=== PATIENT | male | born 1960 | race Caucasian/White ===

== ENCOUNTER → 2020-03-09 13:26 | Outpatient (REF) | payer BC, SELFPAY ==
--- NOTE | 2020-03-09 14:00 | CA_ITS ---
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 The visually estimated ejection fraction is between 55-60%. - The left atrium is moderately dilated. - No obvious valvular pathology seen on this study. Findings Left Ventricle Normal left ventricular cavity size. There is normal left ventricular wall thickness. The left ventricular systolic function is normal. The visually estimated ejection fraction is between 55-60%. There is no evidence of regional wall motion abnormalities. Diastolic function is indeterminate on the basis of available data. Right Ventricle Normal right ventricular cavity size and systolic function. Atria The left atrium is moderately dilated. The right atrium is normal in size. Aortic Valve There is a normal trileaflet aortic valve. There is no aortic valve stenosis. There is no aortic valve regurgitation. Mitral Valve The mitral valve appears normal. There is trace mitral valve regurgitation. There is no mitral valve stenosis. Pulmonic Valve The pulmonic valve was not well visualized. Tricuspid Valve Normal tricuspid valve structure. There is trace tricuspid valve regurgitation. The pulmonary artery systolic pressure is normal. Great Vessels The aortic annulus, sinuses of valsalva, and asc aorta are normal in size. Venous The inferior vena cava is normal in size and collapses greater than 50% with inspiration. Pericardium/Pleural There is no evidence of pericardial effusion. Prior Study Comparison No significant change compared to prior study dated: 02/06/2019. Recommendations, Care & Conclusions No obvious valvular pathology seen on this study. Measurements 2D Linear Measurements RVIDd: 2.85 RVIDd Index: 1.35 IVSd: 1.08 0.6-0.9/0.6-1.0 cm LVIDd: 5.07 3.9-5.3/4.2-5.9 cm LVIDd Index: 2.40 2.4-3.2/2.2-3.1 cm/m2 LVIDs: 3.68 2.0-3.6 cm LVPWd: 1.02 0.7-1.1 cm Ao Root: 3.10 2.1-3.5 cm LA Diam: 5.40 2.7-3.8/3.0-4.0 cm LAIDs Index: 2.56 1.5-2.3 cm/m2 LV Mass: 247.81 67-162/88-224 g LV Mass Index: 117.45 43-95/49-115 g/m2 LVOT Diam: 2.20 3.0+(-)1.3 cm 2D Systolic Function EF 4C: 56.30 >55% EF 2C: 70.30 >55% EF BiP: 64.10 >55% Aortic Valve AoV Pk Da: 1.13 AoV Mn Da: 0.81 AoV VTI: 0.21 AoV Pk Grad: 5.00 Aov Mn Grad: 3.00 ALEXIS Cont.VTI: 3.18 LVOT LVOT Pk Da: 0.94 LVOT Mn Da: 0.66 LVOT VTI: 0.18 LVOT Pk Grad: 4.00 LVOT Mn Grad: 2.00 LVOT Diam: 2.20 LVOT Area: 3.80 Tricuspid Valve TR Pk Da: 1.87 TR Pk Grad: 14.00 RA Press: 8.00 RVSP: 22.00 Great Vessels Aorta Ao Root-2D: 3.10 2.0-3.7 cm Ao Asc: 3.10 2.1-3.4 cm Ao Arch: 2.90 Updated in Other Vendor System with Status of Final Louie Reynoso MD electronically signed on 03/10/2020 9:11:29 AM with status of Final
== END ==
LOC: HO.CARD 13:26
PROVIDERS: PCP Internal Medicine; Visit Provider Internal Medicine Cardiovascular Disease
DX: I48.20 Chronic atrial fibrillation, unspecified (principal); I42.9 Cardiomyopathy, unspecified; I10 Essential (primary) hypertension
CPT/HCPCS: 93306

== ENCOUNTER 2020-07-21 12:48 | Outpatient (REF) | payer BC, SELFPAY ==
[2020-07-21 14:49] LABS: Hematocrit 43.3 % (42-52); Hemoglobin 14.1 g/dl (14.0-18.0); Mean Corpuscular HGB Conc 32.6 g/dl (31.0-36.0); Mean Corpuscular Hemoglobin 30.7 pg (27.0-33.0); Mean Corpuscular Volume 94.1 fL (80-98); Mean Platelet Volume 11.4 fL (9.4-12.4); Platelet Count 175 X10*3/uL (160-400); Red Cell Distribution Width 12.4 % (11.0-16.0); White Blood Count 7.1 X10*3/uL (4.8-10.8)
[2020-07-21 15:19] LABS: Digoxin 0.6 ng/mL (0.8-2.0)
[2020-07-21 15:22] LABS: Anion Gap 11 (12-20); Blood Urea Nitrogen 13 mg/dL (9-16); Calcium 8.9 mg/dL (8.4-10.2); Carbon Dioxide 29 mmol/L (22-29); Chloride 106 mmol/L (96-108); Estimated Glomerular Filt Rate > 60; Glucose Random 79 mg/dL (60-115); Potassium 4.4 mmol/L (3.3-5.1); Sodium 142 mmol/L (135-145)
== END 2020-07-21 12:49 | disposition home or self-care (01) ==
LOC: HO.HMGCLDS 12:48
PROVIDERS: PCP Internal Medicine; Visit Provider Internal Medicine Cardiovascular Disease
DX: I48.20 Chronic atrial fibrillation, unspecified (principal); I42.9 Cardiomyopathy, unspecified
CPT/HCPCS: 36415; 80048; 80162; 85027

== ENCOUNTER 2021-01-26 13:06 | Outpatient (REF) | payer BC, SELFPAY ==
[2021-01-26 15:01] LABS: Hematocrit 42.6 % (42-52); Hemoglobin 13.9 g/dl (14.0-18.0); Mean Corpuscular HGB Conc 32.6 g/dl (31.0-36.0); Mean Corpuscular Hemoglobin 30.5 pg (27.0-33.0); Mean Corpuscular Volume 93.4 fL (80-98); Mean Platelet Volume 10.9 fL (9.4-12.4); Platelet Count 181 X10*3/uL (160-400); Red Blood Count 4.56 X10*6/uL (4.60-5.80); Red Cell Distribution Width 12.4 % (11.0-16.0); White Blood Count 8.2 X10*3/uL (4.8-10.8)
[2021-01-26 15:30] LABS: Anion Gap 10 (12-20); Blood Urea Nitrogen 11 mg/dL (9-16); Carbon Dioxide 27 mmol/L (22-29); Chloride 107 mmol/L (96-108); Estimated Glomerular Filt Rate > 60; Glucose Random 75 mg/dL (60-115); Potassium 4.1 mmol/L (3.3-5.1); Sodium 140 mmol/L (135-145)
[2021-01-26 15:54] LABS: Digoxin 0.8 ng/mL (0.8-2.0)
== END 2021-01-26 13:07 | disposition home or self-care (01) ==
LOC: HO.LAB 13:06
PROVIDERS: PCP Internal Medicine; Referring Provider Internal Medicine; Visit Provider Internal Medicine Cardiovascular Disease
DX: I48.20 Chronic atrial fibrillation, unspecified (principal); I10 Essential (primary) hypertension; Z86.79 Personal history of other diseases of the circulatory system
CPT/HCPCS: 36415; 80048; 80162; 85027; 93005

== ENCOUNTER → 2021-07-13 13:36 | Outpatient (REF) | payer BC, SELFPAY ==
--- NOTE | 2021-07-13 13:40 | CA_ITS ---
Transthoracic Echocardiogram Patient (Last, First, Middle): Damion Carlton P Gender: Male Date of : 1960 Age: 60 Procedure Date: 07/13/2021 Procedure Type: Transthoracic Echocardiogram Location: OP Height: 180.34 cm Weight: 95.26 kg BSA: 2.15 m2 Heart Rate: bpm BP: 120 / 70 mmHg Chief Operator: TORRES Referring MD: Austin Conti MD Barista: Austin Conti MD Symptoms: Z86.79 - Personal history of other diseases of the circul... Study Quality: Fair ECG Rhythm: Atrial Fibrillation Conclusions: - 1. Normal LV systolic function with normal filling pressures 2. Moderately dilated left atrium 3. Normal cardiac valvular Dopplers 4. No pericardial effusion Findings Left Ventricle Normal left ventricular size, thickness, and systolic function. The visually estimated ejection fraction is between 60-65%. Normal left ventricular filling pressures. E/E prime ratio is <8, consistent with normal filling pressures. Right Ventricle Normal right ventricular cavity size and systolic function. Atria The left atrium is moderately dilated. There is lipomatous hypertrophy of the interatrial septum. There is no evidence of interatrial shunt. The right atrium is likely dilated. Aortic Valve Normal aortic valve structure and function. There is no aortic valve stenosis. There is no aortic valve regurgitation. Mitral Valve There is mild posterior mitral leaflet thickening. There is trace mitral valve regurgitation. There is no mitral valve stenosis. Pulmonic Valve The pulmonic valve was not well visualized. Tricuspid Valve Likely normal tricuspid valve structure and function. There is trace tricuspid valve regurgitation. Tricuspid regurgitation envelope is inadequate for calculation of right ventricular systolic pressure. Great Vessels All visible segments of the aorta are normal in size. The pulmonary artery was not well visualized. Venous The inferior vena cava is normal in size and collapses greater than 50% with inspiration. Pericardium/Pleural There is no evidence of pericardial effusion. Prior Study Comparison No significant change compared to prior study dated: 03/09/2020. Measurements 2D Linear Measurements IVSd: 1.12 0.6-0.9/0.6-1.0 cm LVIDd: 5.17 3.9-5.3/4.2-5.9 cm LVIDd Index: 2.40 2.4-3.2/2.2-3.1 cm/m2 LVIDs: 3.37 2.0-3.6 cm LVPWd: 1.02 0.7-1.1 cm LA Diam: 4.90 2.7-3.8/3.0-4.0 cm LAIDs Index: 2.28 1.5-2.3 cm/m2 LV Mass: 262.53 67-162/88-224 g LV Mass Index: 122.11 43-95/49-115 g/m2 LVOT Diam: 2.10 3.0+(-)1.3 cm 2D Systolic Function EF 4C: 69.50 >55% EF 2C: 60.40 >55% EF BiP: 66.10 >55% M-Mode Systolic Function FS: 2.14 27-47/25-43% Mitral Valve MV Pk E: 0.81 MV Decel Time: 151.00 E'Lateral: 13.50 E'Medial: 11.70 E/E' Med: 6.90 E/E' Lat: 6.00 PHT: 44.00 MVA PHT: 5.00 Decel [place]: 5.61 Aortic Valve AoV Pk Da: 1.18 AoV Pk Grad: 6.00 LVOT LVOT Pk Da: 0.90 LVOT Mn Da: 0.60 LVOT VTI: 0.17 LVOT Pk Grad: 3.00 LVOT Mn Grad: 2.00 LVOT Diam: 2.10 LVOT Area: 3.46 Diastolic Function MV Pk E: 0.81 E'Medial: 11.70 E/E' Med: 6.90 E' Laterial: 13.50 E/E' Lat: 6.00 Tricuspid Valve RA Press: 3.00 Great Vessels Aorta Sinus of Valsalva: 3.06 2.0-3.5 cm Ao Asc: 3.10 2.1-3.4 cm Updated in Other Vendor System with Status of Final Austin Conti MD electronically signed on 07/13/2021 8:47:45 PM with status of Final
== END ==
LOC: HO.CARD 13:36
PROVIDERS: PCP Internal Medicine; Visit Provider Internal Medicine Cardiovascular Disease
DX: Z86.79 Personal history of other diseases of the circulatory system (principal)
CPT/HCPCS: 93306

== ENCOUNTER 2021-07-20 13:00 | Outpatient (REF) | payer BC, SELFPAY ==
[2021-07-20 14:14] LABS: Hematocrit 46.1 % (42.0-52.0); Hemoglobin 14.8 g/dl (14.0-18.0); Mean Corpuscular HGB Conc 32.1 g/dl (31.0-36.0); Mean Corpuscular Hemoglobin 30.4 pg (27.0-33.0); Mean Corpuscular Volume 94.7 fL (80.0-98.0); Mean Platelet Volume 10.8 fL (9.4-12.4); Platelet Count 198 X10*3/uL (160-400); Red Blood Count 4.87 X10*6/uL (4.60-5.80); Red Cell Distribution Width 12.3 % (11.0-16.0); White Blood Count 8.4 X10*3/uL (4.8-10.8)
[2021-07-20 14:47] LABS: Anion Gap 12 (12-20); Blood Urea Nitrogen 11 mg/dL (9-16); Calcium 9.6 mg/dL (8.4-10.2); Carbon Dioxide 30 mmol/L (22-29); Chloride 103 mmol/L (96-108); Estimated Glomerular Filt Rate > 60; Glucose Random 89 mg/dL (60-115); Potassium 4.9 mmol/L (3.3-5.1); Sodium 140 mmol/L (135-145)
[2021-07-20 15:10] LABS: Digoxin 0.8 ng/mL (0.8-2.0)
== END 2021-07-20 13:01 | disposition home or self-care (01) ==
LOC: HO.LAB 13:00
PROVIDERS: PCP Internal Medicine; Referring Provider Internal Medicine; Visit Provider Internal Medicine Cardiovascular Disease
DX: I48.20 Chronic atrial fibrillation, unspecified (principal); Z79.899 Other long term (current) drug therapy; Z86.79 Personal history of other diseases of the circulatory system
CPT/HCPCS: 36415; 80048; 80162; 85027; 93005

== ENCOUNTER 2021-09-21 14:06 | Outpatient (REF) | payer BC, SELFPAY ==
[2021-09-21 17:25] LABS: Alanine Aminotransferase 22 U/L (0-40); Albumin Level 4.1 g/dL (3.5-5.0); Alkaline Phosphatase 68 U/L (39-117); Anion Gap 10 (12-20); Aspartate Amino Transferase 19 U/L (5-37); Bilirubin Total 1.9 mg/dL (0.0-1.0); Blood Urea Nitrogen 14 mg/dL (9-16); Calcium 9.3 mg/dL (8.4-10.2); Carbon Dioxide 28 mmol/L (22-29); Chloride 105 mmol/L (96-108); Cholesterol 155 mg/dL; Estimated Glomerular Filt Rate > 60; Glucose Fasting 84 mg/dL (60-99); HDL Cholesterol 34 mg/dL; LDL Cholesterol Calculated 99 mg/dl; Potassium 4.4 mmol/L (3.3-5.1); Sodium 139 mmol/L (135-145); Triglycerides 112 mg/dL
[2021-09-21 17:46] LABS: Prostate Specific Antigen Scr 0.32 ng/mL (<0.05-4.0)
== END 2021-09-21 14:07 | disposition home or self-care (01) ==
LOC: HO.HMGCLDS 14:06
PROVIDERS: Visit Provider Internal Medicine
DX: Z00.00 Encounter for general adult medical examination without abnormal findings (principal); Z12.5 Encounter for screening for malignant neoplasm of prostate; I10 Essential (primary) hypertension; Z86.79 Personal history of other diseases of the circulatory system
CPT/HCPCS: 36415; 80053; 80061; 84153

== ENCOUNTER → 2022-01-25 12:04 | Outpatient (BNVA) | payer BC, SELFPAY | PROVIDERS: PCP Internal Medicine; Referring Provider Internal Medicine; Visit Provider Internal Medicine Cardiovascular Disease | DX: Z01.810 Encounter for preprocedural cardiovascular examination (principal); I48.20 Chronic atrial fibrillation, unspecified; Z86.79 Personal history of other diseases of the circulatory system | CPT/HCPCS: 93005 ==

== ENCOUNTER 2022-01-25 12:59 | Outpatient (REF) | payer BC, SELFPAY ==
[2022-01-25 14:15] LABS: Digoxin 0.7 ng/mL (0.8-2.0)
== END 2022-01-25 13:00 | disposition home or self-care (01) ==
LOC: HO.LAB 12:59
PROVIDERS: PCP Internal Medicine; Visit Provider Internal Medicine Cardiovascular Disease
DX: I48.20 Chronic atrial fibrillation, unspecified (principal)
CPT/HCPCS: 36415; 80162

== ENCOUNTER 2022-02-18 07:16 | Day surgery (SDC) | payer BC, SELFPAY ==
[2022-02-15 10:32] VITALS: BMI 30.4
--- NOTE | 2022-02-17 10:58 | P.CONAN_ITS ---
Documented by User: Margarette Saleh NP 02/17/22 11:00 HPI - Anesthesia Eval Consult details Narrative: 61yo M for Colonoscopy cardiac optimized eliquis for afib PMFSH Active Problems Active Problems: All Active Problems (Updated 09/21/21 @ 14:04 by Lakshmi Kohler MD) Annual physical exam (Acute) History of nephrolithiasis (Acute) Hx of colonoscopy (Acute) History of cardiomyopathy (Acute) HTN (hypertension) (Acute) Chronic atrial fibrillation (Acute) Past Medical History Medical History Annual physical exam Chronic atrial fibrillation History of cardiomyopathy History of nephrolithiasis HTN (hypertension) Surgical History Surgical History Hx of colonoscopy Social History Social History 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:: , 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[employer] Housing: House Patient Tobacco Use Status: Never used Tobacco e-Cigarette/Vaping Use: Never Used Are you DNR?: No Advance Directives: No Advance Directives Information Provided: Yes Nutrition Risks: No Nutritional Risk Current occupational status: employed Cognitive needs: No Hearing needs: No Vision needs: No Meds Allergies Allergy/AdvReac Type Severity Reaction Status Date / Time No Known Allergies Allergy Mild NONE Verified 02/18/22 08:12 Exam Exam Date and Time: February 17, 2022 1058 Height,Weight and Vital Signs: Height 5 ft 11 in Weight 99 kg Pertinent Lab Results Pertinent Lab Results: Laboratory Tests 07/20/21 09/21/21 13:43 14:15 WBC 8.4 Hgb 14.8 Hct 46.1 Plt Count 198 Sodium 139 Potassium 4.4 Chloride 105 Carbon Dioxide 28 BUN 14 Creatinine 1.03 Narrative Narrative: EKG 01/2022 atrial fibrillation with nonspecific T-wave changes Assessment and Plan Assessment Anesthesia Assessment: Chart Reviewed Documented by User: Kyle Vincent MD 02/18/22 15:52 [facility] Past Medical History Medical History Annual physical exam Chronic atrial fibrillation History of cardiomyopathy History of nephrolithiasis HTN (hypertension) Functional capacity: independent ambulation Family History Family history of problems with anesthesia: No Surgical History Surgical History Hx of colonoscopy History of Problems with Anesthesia: No Social History Social History 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:: , 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[employer] Housing: House Patient Tobacco Use Status: Never used Tobacco e-Cigarette/Vaping Use: Never Used Are you DNR?: No Advance Directives: No Advance Directives Information Provided: Yes Nutrition Risks: No Nutritional Risk Current occupational status: employed Cognitive needs: No Hearing needs: No Vision needs: No Meds Allergies Allergy/AdvReac Type Severity Reaction Status Date / Time No Known Allergies Allergy Mild NONE Verified 02/18/22 08:12 Exam Airway Mallampati Class: III TM Dist: >3cm Neck ROM: Full Loose/Missing/Broken Teeth: Yes (Fillings , poor dentition ) Heart: Irregular Lungs: b/l breath sounds Assessment and Plan Assessment Anesthesia Assessment: Anesthesia Plan Discussed Final Anesthetic Review Family History of Problems with Anesthesia: No History of Problems with Anesthesia: No NPO: Yes ASA Class: III Final Preanesthetic Review: Meds/Allgs Chart Reviewed, Consent Obtained/Reviewed and Anes Risks/Benef Reviewed Patient Risk: Intermediate Procedure Risk: Intermediate Anesthetic Plan Anesthetic Plan: MAC: Disposition: Standard PACU
[2022-02-18] MEDS: Lactated Ringers 1,000 ML 100 ML IVCONT (08:01)
[2022-02-18 08:13] VITALS: BP 118/89; PULSE 87; RESP 18; TEMP 36.6; O2SAT 99
--- NOTE | 2022-02-18 08:41 | MHC.SHP ---
Pre-Procedural Eval Section A Date of Service: 02/18/22 The patient is an INPATIENT: No Changes since office visit: No Cold of Flu in the past 2 weeks, No New Medical Problems, No Changes in Medication and No Patient answered all questions The History & Physical has been completed within 30 days and I have reviewed it.: Yes Section B Chief Complaint: Encounter for screening for malignant neoplasm of Allergies: Allergies Allergy/AdvReac Type Severity Reaction Status Date / Time No Known Allergies Allergy Mild NONE Verified 02/18/22 08:12 Plan I have reviewed the history and physical and performed a pertinent physical examination on my patient. No changes have occurred unless specified.
--- NOTE | 2022-02-18 09:50 | PM.OP ---
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
[2022-02-18 09:57] VITALS: BP 91/50; PULSE 77; RESP 15; TEMP 36.2; O2SAT 97
[2022-02-18 10:12] VITALS: BP 95/55; PULSE 78; RESP 18; TEMP 36.2; O2SAT 97
--- NOTE | 2022-02-19 00:40 | OP_ITS ---
SURGEON: Jose Antonio Cortes MD INDICATIONS: Colon cancer screening and prior history of adenomatous colon polyps. PREOPERATIVE DIAGNOSIS: POSTOPERATIVE DIAGNOSIS: PROCEDURE PERFORMED: Colonoscopy to the terminal ileum on 02/18/22. ESTIMATED BLOOD LOSS: COMPLICATIONS: ANESTHESIA: ASSISTANTS: SPECIMENS: MEDICATIONS: Monitored anesthesia care. DESCRIPTION OF PROCEDURE: History and physical performed. The risks and benefits of the procedure were explained to the patient. Informed consent was obtained. The patient was placed in the left lateral decubitus position. A digital rectal exam was performed and was found to be normal. The Olympus pediatric video colonoscope was introduced into the rectum and advanced to the cecum without difficulty. The cecum was identified by transillumination, palpation, and identification of the ileocecal valve. Examination was performed. The scope was removed. He tolerated the procedure well and was transferred to the recovery area in stable condition. FINDINGS: The terminal ileum was examined. There was a small focal area of nonspecific ileitis, but it was otherwise normal. The visualized colonic mucosa was within normal limits without evidence of masses or ulcers. The quality of the prep was excellent. No polyps were identified. There was mild sigmoid diverticulosis and retroflexed examination showed small internal hemorrhoids. IMPRESSION: Normal colonoscopy. RECOMMENDATION: 1. Follow up as needed. 2. Repeat colonoscopy is recommended in 10 years. MD JESSIE Boyd/BRANDI / [id number] MTDD
== END 2022-02-18 11:45 | disposition home or self-care (01) ==
PROVIDERS: PCP Internal Medicine; Visit Provider Internal Medicine Gastroenterology
PROC: 0DJD8ZZ Inspection of Lower Intestinal Tract, Via Natural or Artificial Opening Endoscopic (ICD-10-PCS; CPT 45378; principal; 2022-02-18 08:30)
DX: Z12.11 Encounter for screening for malignant neoplasm of colon (principal); Z86.010 Personal history of colon polyps; K52.9 Noninfective gastroenteritis and colitis, unspecified; K57.30 Diverticulosis of large intestine without perforation or abscess without bleeding; K64.8 Other hemorrhoids; I48.20 Chronic atrial fibrillation, unspecified; E78.00 Pure hypercholesterolemia, unspecified; I10 Essential (primary) hypertension; Z79.899 Other long term (current) drug therapy; Z79.01 Long term (current) use of anticoagulants; Z86.79 Personal history of other diseases of the circulatory system; Z87.442 Personal history of urinary calculi
CPT/HCPCS: 45378; J2250; J2370

== ENCOUNTER 2022-07-26 13:10 | Outpatient (REF) | payer BC, SELFPAY ==
[2022-07-26 14:33] LABS: Hematocrit 45.3 % (42.0-52.0); Hemoglobin 14.9 g/dl (14.0-18.0); Mean Corpuscular HGB Conc 32.9 g/dl (31.0-36.0); Mean Corpuscular Volume 94.2 fL (80.0-98.0); Mean Platelet Volume 10.6 fL (9.4-12.4); Platelet Count 213 X10*3/uL (160-400); Red Blood Count 4.81 X10*6/uL (4.60-5.80); Red Cell Distribution Width 12.4 % (11.0-16.0); White Blood Count 8.8 X10*3/uL (4.8-10.8)
[2022-07-26 14:57] LABS: Digoxin 0.9 ng/mL (0.8-2.0)
[2022-07-26 15:04] LABS: Alanine Aminotransferase 19 U/L (0-40); Alkaline Phosphatase 71 U/L (39-117); Anion Gap 13 (12-20); Aspartate Amino Transferase 17 U/L (5-37); Bilirubin Direct 0.5 mg/dL (0.0-0.5); Bilirubin Total 1.6 mg/dL (0.0-1.0); Blood Urea Nitrogen 10 mg/dL (9-16); Carbon Dioxide 27 mmol/L (22-29); Chloride 106 mmol/L (96-108); Estimated Glomerular Filt Rate > 60; Glucose Random 89 mg/dL (60-115); Potassium 4.6 mmol/L (3.3-5.1); Sodium 141 mmol/L (135-145); Total Protein 6.5 g/dL (6.5-8.0)
[2022-07-26 15:18] LABS: Ferritin 511 ng/mL (20-250)
== END 2022-07-26 13:11 | disposition home or self-care (01) ==
LOC: HO.LAB 13:10
PROVIDERS: PCP Internal Medicine; Referring Provider Internal Medicine; Visit Provider Internal Medicine Cardiovascular Disease
DX: I48.20 Chronic atrial fibrillation, unspecified (principal); R42 Dizziness and giddiness; Z86.79 Personal history of other diseases of the circulatory system; Z79.899 Other long term (current) drug therapy
CPT/HCPCS: 36415; 80048; 80076; 80162; 82728; 85027

== ENCOUNTER → 2022-07-29 10:38 | Outpatient (REF) | payer BC, SELFPAY ==
--- NOTE | 2022-07-29 10:42 | CA_ITS ---
Transthoracic Echocardiogram Patient (Last, First, Middle): Damion Carlton P Gender: Male Date of : 1960 Age: 61 Procedure Date: 07/29/2022 Procedure Type: Transthoracic Echocardiogram Location: OP Height: 180.34 cm Weight: 94.35 kg BSA: 2.14 m2 Heart Rate: 68 bpm BP: 100 / 60 mmHg Quality Control Coordinator: LILIANE Referring MD: Austin Conti MD Community Representative: Austin Conti MD Symptoms: I48.20 - Chronic atrial fibrillation, unspecified Study Quality: Adequate ECG Rhythm: Atrial Fibrillation Conclusions: - 1. Normal LV systolic function and normal filling pressures 2. At least mildly dilated left atrium 3. No gross pericardial effusion Findings Left Ventricle Normal left ventricular size, thickness, and systolic function. The visually estimated ejection fraction is between 55-60%. Normal left ventricular filling pressures. E/E prime ratio is <8, consistent with normal filling pressures. Right Ventricle Mildly increased right ventricular cavity size. There is normal right ventricular systolic function. Atria The left atrium is mildly dilated. There is no evidence of interatrial shunt. The right atrium is normal in size. Aortic Valve Normal aortic valve structure and function. There is no aortic valve stenosis. There is no aortic valve regurgitation. Mitral Valve Normal mitral valve structure and function. There is trace mitral valve regurgitation. There is no mitral valve stenosis. Pulmonic Valve The pulmonic valve was not well visualized. Tricuspid Valve Likely normal tricuspid valve structure and function. Tricuspid regurgitation envelope is inadequate for calculation of right ventricular systolic pressure. Normal right atrial pressure. Great Vessels All visible segments of the aorta are normal in size. The pulmonary artery was not well visualized. Venous The inferior vena cava is normal in size and collapses greater than 50% with inspiration. Pericardium/Pleural There is no evidence of pericardial effusion. Prior Study Comparison No significant change compared to prior study dated: 07/13/2021. Measurements 2D Linear Measurements IVSd: 1.04 0.6-0.9/0.6-1.0 cm LVIDd: 5.11 3.9-5.3/4.2-5.9 cm LVIDd Index: 2.39 2.4-3.2/2.2-3.1 cm/m2 LVIDs: 3.45 2.0-3.6 cm LVPWd: 1.00 0.7-1.1 cm LA Diam: 4.50 2.7-3.8/3.0-4.0 cm LAIDs Index: 2.10 1.5-2.3 cm/m2 LV Mass: 241.38 67-162/88-224 g LV Mass Index: 112.79 43-95/49-115 g/m2 LVOT Diam: 2.30 3.0+(-)1.3 cm 2D Systolic Function EF 4C: 58.30 >55% EF 2C: 54.10 >55% EF BiP: 56.80 >55% Mitral Valve MV Pk E: 0.70 MV Decel Time: 221.00 E'Lateral: 9.14 E'Medial: 7.94 E/E' Med: 8.80 E/E' Lat: 7.60 PHT: 65.00 MVA PHT: 3.38 Decel [place]: 3.16 Aortic Valve AoV Pk Da: 1.00 AoV Mn Da: 0.70 AoV VTI: 0.18 AoV Pk Grad: 4.00 Aov Mn Grad: 2.00 ALEXIS Cont.VTI: 3.67 LVOT LVOT Pk Da: 0.80 LVOT Mn Da: 0.58 LVOT VTI: 0.16 LVOT Pk Grad: 3.00 LVOT Mn Grad: 2.00 LVOT Diam: 2.30 LVOT Area: 4.15 Diastolic Function MV Pk E: 0.70 E'Medial: 7.94 E/E' Med: 8.80 E' Laterial: 9.14 E/E' Lat: 7.60 Right Ventricle TAPSE (mm): 18.30 TVS' Da: 11.60 Tricuspid Valve RA Press: 3.00 Great Vessels Aorta Sinus of Valsalva: 3.50 2.0-3.5 cm Ao Asc: 3.10 2.1-3.4 cm Pulmonary Valve PV Pk Da: 1.06 Peak PV Grad: 4.00 Updated in Other Vendor System with Status of Final Austin Conti MD electronically signed on 07/30/2022 1:16:13 PM with status of Final
== END ==
LOC: HO.CARD 10:38
PROVIDERS: PCP Internal Medicine; Visit Provider Internal Medicine Cardiovascular Disease
DX: I48.20 Chronic atrial fibrillation, unspecified (principal)
CPT/HCPCS: 93306

== ENCOUNTER 2022-09-08 06:15 | Outpatient (REF) | payer BC, SELFPAY ==
[2022-09-08 11:37] LABS: Hematocrit 44.3 % (42.0-52.0); Hemoglobin 14.4 g/dl (14.0-18.0); Mean Corpuscular HGB Conc 32.5 g/dl (31.0-36.0); Mean Corpuscular Hemoglobin 30.4 pg (27.0-33.0); Mean Corpuscular Volume 93.5 fL (80.0-98.0); Mean Platelet Volume 10.7 fL (9.4-12.4); Platelet Count 205 X10*3/uL (160-400); Red Blood Count 4.74 X10*6/uL (4.60-5.80); Red Cell Distribution Width 12.4 % (11.0-16.0); White Blood Count 8.9 X10*3/uL (4.8-10.8)
[2022-09-08 12:15] LABS: Alanine Aminotransferase 12 U/L (0-40); Albumin Level 3.9 g/dL (3.5-5.0); Alkaline Phosphatase 70 U/L (39-117); Anion Gap 11 (12-20); Aspartate Amino Transferase 15 U/L (5-37); Bilirubin Total 2.4 mg/dL (0.0-1.0); Blood Urea Nitrogen 11 mg/dL (9-16); Calcium 8.7 mg/dL (8.4-10.2); Carbon Dioxide 29 mmol/L (22-29); Chloride 104 mmol/L (96-108); Cholesterol 137 mg/dL; Estimated Glomerular Filt Rate > 60; Glucose Fasting 80 mg/dL (60-99); HDL Cholesterol 30 mg/dL; LDL Cholesterol Calculated 86 mg/dl; Potassium 3.8 mmol/L (3.3-5.1); Sodium 140 mmol/L (135-145); Total Protein 6.3 g/dL (6.5-8.0); Triglycerides 107 mg/dL
[2022-09-08 12:36] LABS: Prostate Specific Antigen Scr 0.33 ng/mL (<0.05-4.0)
== END 2022-09-08 06:16 | disposition home or self-care (01) ==
LOC: HO.HMGCLDS 06:15
PROVIDERS: PCP Internal Medicine; Visit Provider Internal Medicine
DX: Z00.00 Encounter for general adult medical examination without abnormal findings (principal); Z12.5 Encounter for screening for malignant neoplasm of prostate; I10 Essential (primary) hypertension; Z86.79 Personal history of other diseases of the circulatory system
CPT/HCPCS: 36415; 80053; 80061; 84153; 85027

== ENCOUNTER 2023-02-02 15:05 | Outpatient (AMB) | payer BC, SELFPAY ==
[2023-02-02 15:21] VITALS: BP 116/70; PULSE 84; BMI 31.1
--- NOTE | 2023-02-02 15:21 | MHC.OFFVIS ---
Intake Vital Signs 02/02/23 15:21 Height 5 ft 11 in Weight 222 lb 10.67 oz BMI 31.1 BP 116/70 Blood Pressure Location Lt brachial Position Sitting Pulse 84 Intake Visit Reasons: 6 month after echo Intake Note: 6 month follow-up after echo with ekg feeling good Test Case Developer Required: No Allergies No Known Allergies Allergy (Mild, Verified 09/26/22 13:01) NONE Medication List - Last Reconciled 02/02/23 by Austin Conti MD apixaban (Eliquis) 5 mg PO BID carvedilol 37.5 mg (1.5 x 25 mg) PO BID 90 days digoxin (Digox) 250 mcg PO DAILY 90 days losartan 12.5 mg (1/2 x 25 mg) PO QPM simvastatin 20 mg PO BEDTIME HPI HPI Comments History of Present Illness Details Bill comes for follow-up. Denies any cardiac symptoms. Currently taking all his medications. Few weeks ago at very low blood pressure in the morning in the 80 systolic. Was lightheaded. However since then the blood pressures been generally well control. Gets exertional shortness of breath NYHA class 2 unchanged from before. Denies any orthopnea, PND, leg edema. Denies any palpitation irregular heartbeat. No bleeding issues or neurologic events. 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 Patient Tobacco Use Status: Never used Tobacco e-Cigarette/Vaping Use: Never Used service: No Current occupational status: employed Cognitive needs: No Hearing needs: No Vision needs: No Review of Systems Const Denies chills, Denies fatigue, Denies fever(s), Denies frequent falls, Denies weakness, Denies weight gain and Denies weight loss ENT Denies dizziness Card Denies chest pain, Denies leg edema, Denies lightheadedness, Denies palpitations, Denies dyspnea, Denies dyspnea on exertion, Denies orthopnea and Denies other (loss of consciousness) Resp Denies cough, Denies dyspnea and Denies dyspnea on exertion GI Denies hematochezia and Denies change in stool character Musc Denies abnormal gait, Denies muscle weakness, Denies numbness, Denies radiating pain into limb and Denies tingling Neuro Denies abnormal gait, Denies dizziness, Denies frequent falls, Denies numbness, Denies tingling and Denies weakness Endo Denies fatigue and Denies palpitations Physical Exam Vital Signs: Last Vital Signs Pulse 84 02/02/23 15:21 BP 116/70 02/02/23 15:21 BMI result Body Mass Index 31.1 Const General: cooperative, comfortable, no acute distress, alert, awake and well groomed Nutritional Appearance: overweight Orientation/consciousness: patient oriented x3 Limitations: no limitations Neck Neck: Yes trachea midline, Yes supple and Yes no JVD Resp Effort & Inspection: normal respiratory effort Auscultation: clear to auscultation bilaterally Cardio Jugular venous distension: no JVD Palpation: normal PMI Rate: regular rate Rhythm: abnormal rhythm irregularly irregular Heart sounds: S1 normal heart sound present, S2 normal heart sound present, no click, no gallops, no murmurs and no rubs GI Auscultation: normal bowel sounds Skin General skin exam: no rashes or lesions noted Neuro General: patient oriented x3 and no focal motor deficits Extrem General: Yes no clubbing, cyanosis or edema Psych Appearance: grossly normal Office Procedures EKG Details: EKG shows atrial fibrillation with nonspecific ST T wave changes [id number], Complete Assessment & Plan Assessment & Plan (1) Chronic atrial fibrillation: Comment: s/p 2 unsuccessful ablations, rate controlled, Dr. Conti , ECHO 08/27 [facility] 60% Code(s): I48.20 - Chronic atrial fibrillation, unspecified Plan: Chronic rate control atrial fibrillation, has failed rhythm control approach in the past despite ablation multiple other attempts. Has done well with rate control approach. Has NYHA class 2 symptoms. No signs or symptoms of heart failure otherwise. Continue current rate control with digoxin and carvedilol therapy. Semi annually digoxin assay should be performed. Continue full oral anticoagulation with Eliquis. Semi annual renal function test should be pursued as well. Encouraged to continue to participate in physical activity as tolerated. (2) History of cardiomyopathy: Code(s): Z86.79 - Personal history of other diseases of the circulatory system Plan: Prior history of cardiomyopathy with near normal LV ejection fraction. Continue neurohormonal modulation with carvedilol losartan as well as continue current aggressive rate control approach. No signs or symptoms of heart failure. Encouraged to continue to participate in physical activity as tolerated. (3) HTN (hypertension): Code(s): I10 - Essential (primary) hypertension Plan: Hypertension the past, currently having low blood pressure. Losartan only at nighttime. Advised to increase fluid and occasionally salt intake. Continue monitor blood pressure regularly at home. Continue participate heart healthy lifestyle and weight loss program. Will follow up in the clinic in 6 months time, sooner p.r.n.. Thank you allowing me to partake in his care Orders: Orders Complete Blood Count no Diff Today I48.20 - Chronic atrial fibrillation, unspecified Digoxin Today I48.20 - Chronic atrial fibrillation, unspecified Magnesium Today I48.20 - Chronic atrial fibrillation, unspecified, I50.30 - Unspecified diastolic (congestive) heart failure Ferritin Today I48.20 - Chronic atrial fibrillation, unspecified Basic Metabolic Panel Today I48.20 - Chronic atrial fibrillation, unspecified Coding Level of Care Code Est Pt Level 4 (35314) Diagnoses Chronic atrial fibrillation I48.20 History of cardiomyopathy Z86.79 HTN (hypertension) I10 CPT Codes EKG - CPT: 71342-[id number], Complete ([id number])
== END 2023-02-02 15:44 | disposition home or self-care (01) ==
PROVIDERS: PCP Internal Medicine; Visit Provider Internal Medicine Cardiovascular Disease
DX: I48.20 Chronic atrial fibrillation, unspecified (principal); Z86.79 Personal history of other diseases of the circulatory system; I10 Essential (primary) hypertension
CPT/HCPCS: 93010; 99214

== ENCOUNTER 2023-02-02 15:05 | Outpatient (REF) | payer BC, SELFPAY ==
[2023-02-02 16:26] LABS: Hematocrit 45.3 % (42.0-52.0); Hemoglobin 15.1 g/dl (14.0-18.0); Mean Corpuscular HGB Conc 33.3 g/dl (31.0-36.0); Mean Corpuscular Hemoglobin 30.8 pg (27.0-33.0); Mean Corpuscular Volume 92.4 fL (80.0-98.0); Platelet Count 217 X10*3/uL (160-400); White Blood Count 9.9 X10*3/uL (4.8-10.8)
[2023-02-02 18:13] LABS: Anion Gap 16 (12-20); Blood Urea Nitrogen 9 mg/dL (9-16); Calcium 9.7 mg/dL (8.4-10.2); Carbon Dioxide 24 mmol/L (22-29); Chloride 103 mmol/L (96-108); Estimated Glomerular Filt Rate > 60; Glucose Random 91 mg/dL (60-115); Magnesium 2.1 mg/dL (1.6-2.6); Potassium 4.1 mmol/L (3.3-5.1); Sodium 139 mmol/L (135-145)
[2023-02-02 18:18] LABS: Digoxin 0.9 ng/mL (0.8-2.0)
[2023-02-02 18:20] LABS: Ferritin 508 ng/mL (20-250)
== END 2023-02-02 15:06 | disposition home or self-care (01) ==
LOC: HO.LAB 15:05
PROVIDERS: PCP Internal Medicine; Visit Provider Internal Medicine Cardiovascular Disease
DX: I11.0 Hypertensive heart disease with heart failure (principal); I50.30 Unspecified diastolic (congestive) heart failure; I48.20 Chronic atrial fibrillation, unspecified; Z86.79 Personal history of other diseases of the circulatory system; Z79.899 Other long term (current) drug therapy
CPT/HCPCS: 36415; 80048; 80162; 82728; 83735; 85027; 93005

== ENCOUNTER 2023-07-20 14:05 | Outpatient (AMB) | payer BC, SELFPAY ==
[2023-07-20 14:30] VITALS: BP 110/70; PULSE 77; BMI 30.4
--- NOTE | 2023-07-20 14:30 | A.OFFVIS_ITS ---
Intake Vital Signs 07/20/23 14:30 Height 5 ft 11 in Weight 218 lb 4.122 oz BMI 30.4 BP 110/70 Blood Pressure Location Lt brachial Position Sitting Pulse 77 Intake Visit Reasons: follow up 6 month Intake Note: Follow-up 6 month follow-up with ekg Director Of Healthcare Systems Required: No Allergies No Known Allergies Allergy (Mild, Verified 09/26/22 13:01) NONE Medication List - Last Reconciled 07/20/23 by Austin Conti MD apixaban (Eliquis) 5 mg PO BID carvedilol 37.5 mg (1.5 x 25 mg) PO BID 90 days digoxin (Digox) 250 mcg PO DAILY 90 days losartan 12.5 mg (1/2 x 25 mg) PO QPM simvastatin 20 mg PO BEDTIME HPI HPI Comments History of Present Illness Details Bill comes for follow-up. No new symptoms. Continues to have exertional shortness of breath which is unchanged. Denies orthopnea, PND, leg edema. Denies any prolonged palpitation irregular heartbeat. Denies any ligh theadedness, syncope. No bleeding issues or neurologic events. 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 [employer] Housing: House Patient Tobacco Use Status: Never used Tobacco e-Cigarette/Vaping Use: Never Used service: No Current occupational status: employed Cognitive needs: No Hearing needs: No Vision needs: No Review of Systems Const Denies chills, Denies fatigue, Denies fever(s), Denies frequent falls, Denies weakness, Denies weight gain and Denies weight loss ENT Denies dizziness Card Denies chest pain, Denies leg edema, Denies lightheadedness, Denies palpitations, Denies dyspnea, Denies dyspnea on exertion, Denies orthopnea and Denies other (loss of consciousness) Resp Denies cough, Denies dyspnea and Denies dyspnea on exertion GI Denies hematochezia and Denies change in stool character Musc Denies abnormal gait, Denies muscle weakness, Denies numbness, Denies radiating pain into limb and Denies tingling Neuro Denies abnormal gait, Denies dizziness, Denies frequent falls, Denies numbness, Denies tingling and Denies weakness Endo Denies fatigue and Denies palpitations Physical Exam Vital Signs: Last Vital Signs Pulse 77 07/20/23 14:30 BP 110/70 07/20/23 14:30 BMI result Body Mass Index 30.4 Const General: cooperative, comfortable, no acute distress, alert, awake and well groomed Nutritional Appearance: overweight Orientation/consciousness: patient oriented x3 Limitations: no limitations Neck Neck: Yes trachea midline, Yes supple and Yes no JVD Resp Effort & Inspection: normal respiratory effort Auscultation: clear to auscultation bilaterally Cardio Jugular venous distension: no JVD Palpation: normal PMI Rate: regular rate Rhythm: abnormal rhythm irregularly irregular Heart sounds: S1 normal heart sound present, S2 normal heart sound present, no click, no gallops, no murmurs and no rubs GI Auscultation: normal bowel sounds Skin General skin exam: no rashes or lesions noted Neuro General: patient oriented x3 and no focal motor deficits Extrem General: Yes no clubbing, cyanosis or edema Psych Appearance: grossly normal Office Procedures EKG Details: EKG shows atrial fibrillation with nonspecific T-wave changes [id number], Complete Assessment & Plan Assessment & Plan (1) Chronic atrial fibrillation: Comment: s/p 2 unsuccessful ablations, rate controlled, Dr. Conti , ECHO 08/27 nlEF 60% Code(s): I48.20 - Chronic atrial fibrillation, unspecified Plan: Chronic rate control atrial fibrillation has failed rhythm control approach has done well with rate control approach. Continue currently on Cardizem and digoxin therapy. Semi annually digoxin assay should be pursued. Continue full oral anticoagulation, currently on Eliquis 5 mg b.i.d.. Semi annual renal function test should be pursued. We discussed management again any understands and agrees. (2) History of cardiomyopathy: Code(s): Z86.79 - Personal history of other diseases of the circulatory system Plan: Prior history of cardiomyopathy which has normalized LV ejection fraction with aggressive rate control as well as current neurohormonal modulation with carvedilol and losartan. Continue the same. Signs and symptoms of congestive heart failure were discussed. Follow-up echocardiogram next year. (3) HTN (hypertension): Code(s): I10 - Essential (primary) hypertension Plan: Hypertension which is currently well optimized on current therapy. Importance of good blood pressure control was discussed advised to monitor blood pressure at home maintain a log. Low-salt diet was discussed. Advised to maintain activity level as tolerated. Follow up in the clinic in 6 months time, sooner p.r.n.. Thank you for allowing me to partake in his care Orders: Orders Digoxin Today I48.20 - Chronic atrial fibrillation, unspecified Basic Metabolic Panel Today I48.20 - Chronic atrial fibrillation, unspecified Coding Level of Care Code Est Pt Level 4 (87474) Diagnoses Chronic atrial fibrillation I48.20 History of cardiomyopathy Z86.79 HTN (hypertension) I10 CPT Codes EKG - CPT: 45715-[id number], Complete ([id number])
== END 2023-07-20 14:55 | disposition home or self-care (01) ==
PROVIDERS: PCP Internal Medicine; Visit Provider Internal Medicine Cardiovascular Disease
DX: I48.20 Chronic atrial fibrillation, unspecified (principal); Z86.79 Personal history of other diseases of the circulatory system; I10 Essential (primary) hypertension
CPT/HCPCS: 93010; 99214

== ENCOUNTER 2023-07-20 14:05 | Outpatient (REF) | payer BC, SELFPAY ==
[2023-07-20 16:04] LABS: Digoxin 1.1 ng/mL (0.8-2.0)
[2023-07-20 16:08] LABS: Anion Gap 12 (12-20); Blood Urea Nitrogen 11 mg/dL (9-16); Carbon Dioxide 25 mmol/L (22-29); Chloride 106 mmol/L (96-108); Estimated Glomerular Filt Rate > 60; Glucose Random 97 mg/dL (60-115); Potassium 4.2 mmol/L (3.3-5.1); Sodium 139 mmol/L (135-145)
== END 2023-07-20 14:06 | disposition home or self-care (01) ==
LOC: HO.LAB 14:05
PROVIDERS: Absent Provider Internal Medicine; PCP Internal Medicine; Visit Provider Internal Medicine Cardiovascular Disease
DX: I48.20 Chronic atrial fibrillation, unspecified (principal); I10 Essential (primary) hypertension; Z86.79 Personal history of other diseases of the circulatory system; Z79.899 Other long term (current) drug therapy
CPT/HCPCS: 36415; 80048; 80162; 93005

== ENCOUNTER 2023-09-19 06:04 | Outpatient (REF) | payer BC, SELFPAY ==
[2023-09-19 10:42] LABS: MANUAL DIFF FLAG NO
[2023-09-19 10:49] LABS: Basophils Absolute Auto 0.1 X10*3/uL (0.0-0.2); Basophils Percent Auto 0.6 % (0-2); Eosinophils Absolute Auto 0.2 X10*3/uL (0.0-0.4); Eosinophils Percent Auto 1.9 % (0-4); Hematocrit 45.9 % (42.0-52.0); Hemoglobin 15.3 g/dl (14.0-18.0); Imm Gran Abs Auto 0.03 X10*3/uL (0.00-0.03); Imm Gran Pct Auto 0.4 % (0.0-0.4); Lymphocytes Absolute Auto 1.8 X10*3/uL (1.2-4.9); Lymphocytes Percent Auto 21.8 % (20-40); Mean Corpuscular HGB Conc 33.3 g/dl (31.0-36.0); Mean Corpuscular Hemoglobin 31.5 pg (27.0-33.0); Mean Corpuscular Volume 94.6 fL (80.0-98.0); Mean Platelet Volume 10.6 fL (9.4-12.4); Monocytes Absolute Auto 0.6 X10*3/uL (0.1-1.2); Monocytes Percent Auto 7.5 % (2-11); Neutrophils Absolute Auto 5.7 x10*3/uL (2.0-8.3); Neutrophils Percent Auto 67.8 % (45-73); Platelet Count 220 X10*3/uL (160-400); Red Blood Count 4.85 X10*6/uL (4.60-5.80); Red Cell Distribution Width 12.9 % (11.0-16.0); White Blood Count 8.4 X10*3/uL (4.8-10.8)
[2023-09-19 11:35] LABS: Alanine Aminotransferase 17 U/L (0-40); Albumin Level 4.1 g/dL (3.5-5.0); Alkaline Phosphatase 72 U/L (39-117); Anion Gap 13 (12-20); Aspartate Amino Transferase 20 U/L (5-37); Bilirubin Total 1.8 mg/dL (0.0-1.0); Blood Urea Nitrogen 8 mg/dL (9-16); Calcium 9.3 mg/dL (8.4-10.2); Carbon Dioxide 26 mmol/L (22-29); Chloride 104 mmol/L (96-108); Cholesterol 139 mg/dL (<200); Estimated Glomerular Filt Rate > 60; Glucose Fasting 122 mg/dL (60-99); HDL Cholesterol 34 mg/dL (>40); LDL Cholesterol Calculated 86 mg/dL (<100); Potassium 4.4 mmol/L (3.3-5.1); Sodium 139 mmol/L (135-145); Total Protein 7.1 g/dL (6.5-8.0); Triglycerides 99 mg/dL (<150)
[2023-09-19 11:44] LABS: PSA,Total (Free>4and<10) 0.44 ng/mL (0.00-4.00)
[2023-09-19 11:53] LABS: Ferritin 457 ng/mL (20-250)
[2023-09-19 13:35] LABS: Appearance Urine Clear; Color Urine Yellow; Glucose Urine UA 500 mg/dL (Negative); Leukocyte Esterase Urine Negative (Negative); Nitrite Urine Negative (Negative); Specific Gravity - Urine 1.015 (1.005-1.025); Urine Blood Negative (Negative); Urine Ketones Trace mg/dL (Negative); Urine Protein Negative (Neg-Trace)
[2023-09-19 13:38] LABS: Bacteria Urine None Seen (None Seen); Hyaline Casts Urine 0-2 /LPF (0-2); RBC Urine 0-2 /HPF (0-2); Squamous Epithelial Cell Urine 0-2 /HPF (0-2); WBC Urine 0-5 /HPF (0-5)
== END 2023-09-19 06:05 | disposition home or self-care (01) ==
LOC: HO.HMGCLDS 06:04
PROVIDERS: PCP Internal Medicine; Visit Provider Internal Medicine
DX: Z00.00 Encounter for general adult medical examination without abnormal findings (principal); R79.89 Other specified abnormal findings of blood chemistry; I10 Essential (primary) hypertension; I48.20 Chronic atrial fibrillation, unspecified; Z12.5 Encounter for screening for malignant neoplasm of prostate
CPT/HCPCS: 36415; 80053; 80061; 81001; 82728; 84153; 85025

== ENCOUNTER 2023-09-28 11:20 | Outpatient (AMB) | payer BC, SELFPAY ==
--- NOTE | 2023-09-28 11:32 | A.OFFPC_ITS ---
Vital Signs 09/28/23 11:33 Height 5 ft 11 in Weight 217 lb BMI 30.3 BP 112/86 Blood Pressure Location Lt brachial Position Sitting Pulse 71 Pulse Source Pulse Oximeter Pulse Oximetry (%) 96 Oxygen Delivery Method Room Air Intake Visit Reasons: PE Intake Note: Pt is here today for PE. Allergies No Known Allergies Allergy (Mild, Verified 09/28/23 11:35) NONE Medication List - Last Reconciled 09/28/23 by Lakshmi Kohler MD apixaban (Eliquis) 5 mg PO BID carvedilol 37.5 mg (1.5 x 25 mg) PO BID 90 days digoxin (Digox) 250 mcg PO DAILY 90 days losartan 12.5 mg (1/2 x 25 mg) PO QPM simvastatin 20 mg PO BEDTIME Tobacco use date assessed: 09/28/23 Dental Screening Dental Screen Date: 09/28/23 Did you have a dental visit in the last 12 months?: Yes Did you have a dental problem in the last 6 months where you did not have access to dental care?: No Was dental information given to patient?: Patient has dentist HPI PE HPI Details Pt presents for PE. 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 1. Little interest or pleasure in doing things: not at all 2. Feeling down, depressed, or hopeless: not at all 3. Trouble falling or staying asleep, or sleeping too much: not at all 4. Feeling tired or having little energy: not at all 5. Poor appetite or overeating: not at all 6. Feeling bad about yourself - or that you are a failure or have let yourself or your family down: not at all 7. Trouble concentrating on things, such as reading the newspaper or watching television: not at all 8. Moving or speaking so slowly that other people could have noticed. Or the opposite - being so fidgety or restless that you have been moving around a lot more than usual: not at all 9. Thoughts that you would be better off or of hurting yourself in some way: not at all Total score: 0 Depression Screening Interpretation: Negative Depression Screening Done: Yes Source: Developed by Drs. Edmond Hernandez, Li Berry, Santhosh Contreras and colleagues, with an educational raffi from [employer]. Thrive Questionnaire Date Thrive assessed: 09/28/23 I am a: Patient What is your living situation today?: I have a steady place to live Within the past 12 months, did the food you bought not last and you didn't have the money to get more?: Never true Within the past 12 months, did you worry whether your food would run out before you got money to buy more?: Never true Do you have trouble paying for medicines?: No Do you have trouble getting transportation to medical appointments?: No Do you have trouble paying your heating and electricity bill?: No Do you have trouble taking care of your child, family member or friend?: No Do you have trouble with day-to-day activities such as bathing, preparing meals, shopping, managing finances, etc.?: No Are you currently unemployed and looking for a job?: No Are you interested in more education?: No Please select the resources that you would like help with: None THRIVE Score: 0 AUDIT C Alcohol Use Questionnaire (AUDIT-C) 1. How often do you have a drink containing alcohol?: Monthly or less 2. How many drinks containing alcohol do you have on a typical day when you are drinking?: 1 or 2 3. How often do you have six or more drinks on one occasion?: Never Total Score: 1 PALOMO-7 AMB Questionnaire PALOMO-7 Date PALOMO - 7 assessed: 09/28/23 Feeling nervous, anxious, or on edge: 0 = Not at all Not being able to stop or control worryin = Not at all Worrying too much about different things: 0 = Not at all Trouble relaxin = Not at all Being so restless that it is hard to sit still: 0 = Not at all Becoming easily annoyed or irritable: 0 = Not at all Feeling afraid as if something awful might happen: 0 = Not at all Total PALOMO-7 score (0-4 normal; 5-9 mild; 10-14 moderate; 15-21 severe): 0 Source: Developed by Drs. Edmond Hernandez, Li Berry, Santhosh Contreras and colleagues, with an educational raffi from [employer]. Review of Systems Const All systems reviewed & are unremarkable except as noted in HPI and below Eyes Reports no additional complaints ENT Reports no additional complaints Card Reports no additional complaints Resp Reports no additional complaints Physical exam (Primary Care) Vital Signs: Last Vital Signs Pulse 71 09/28/23 11:33 BP 112/86 09/28/23 11:33 Pulse Ox 96 09/28/23 11:33 Oxygen Delivery Method Room Air 09/28/23 11:33 BMI result Body Mass Index 30.3 Tobacco/Smoking Status: Tobacco use Status Tobacco use date assessed 09/28/23 09/28/23 11:37 Patient Tobacco Use Status Never used Tobacco 09/28/23 11:34 e-Cigarette/Vaping Use Never Used 09/28/23 11:34 PHQ-9: PHQ-9 Score PHQ-9: Total score 0 09/28/23 11:38 Depression Screening Interpretation: Negative Thrive Assessment: Date of Thrive Assessment Date Thrive assessed 09/28/23 09/28/23 11:38 Const General: no acute distress HENMT Head: Yes normal to inspection Ears: hearing grossly normal bilaterally Face and sinus: Yes normal facial exam Throat: Yes posterior oropharynx normal Eyes General: appearance normal, both eyes and all related structures Neck Neck: Yes no meningeal signs and Yes supple Resp Effort & Inspection: normal respiratory effort Auscultation: clear to auscultation bilaterally Cardio Rhythm: regular rhythm Heart sounds: S1 normal heart sound present and S2 normal heart sound present GI Inspection: Yes normal to inspection Palpation (GI): Soft to palpation Percussion: Yes normal to percussion Auscultation: normal bowel sounds Neuro General: no meningeal signs Assessment and Plan Assessment & Plan (1) Chronic atrial fibrillation: Comment: s/p 2 unsuccessful ablations, rate controlled, Dr. Conti , ECHO 08/27 nlEF 60% Code(s): I48.20 - Chronic atrial fibrillation, unspecified Plan: cont meds, f/u with cardiology (2) HTN (hypertension): Code(s): I10 - Essential (primary) hypertension Plan: cont Losartan (3) Hx of colonoscopy: Comment: 4 colonoscopies, Sebastian Ledesma, repeated in 01/2022, repeat 10 yrs Code(s): Z98.890 - Other specified postprocedural states (4) Annual physical exam: Code(s): Z00.00 - Encounter for general adult medical examination without abnormal findings Plan: Well-balanced diet regular physical activity weight loss discussed with the patient. (5) Elevated ferritin: Comment: Workup negative by Hematology Code(s): R79.89 - Other specified abnormal findings of blood chemistry Orders: Orders Comprehensive [place]. Panel Fast 1 Year I10 - Essential (primary) hypertension, I48.20 - Chronic atrial fibrillation, unspecified, R79.89 - Other specified abnormal findings of blood chemistry, Z00.00 - Encounter for general adult medical examination without abnormal findings, Z98.890 - Other specified postprocedural states Complete Blood Count Auto Diff 1 Year I10 - Essential (primary) hypertension, I48.20 - Chronic atrial fibrillation, unspecified, R79.89 - Other specified abnormal findings of blood chemistry, Z00.00 - Encounter for general adult medical examination without abnormal findings, Z98.890 - Other specified postprocedural states PSA,Total (Free>4and<10) 1 Year I10 - Essential (primary) hypertension, I48.20 - Chronic atrial fibrillation, unspecified, R79.89 - Other specified abnormal findings of blood chemistry, Z00.00 - Encounter for general adult medical examination without abnormal findings, Z98.890 - Other specified postprocedural states Lipid Panel 1 Year I10 - Essential (primary) hypertension, I48.20 - Chronic atrial fibrillation, unspecified, R79.89 - Other specified abnormal findings of blood chemistry, Z00.00 - Encounter for general adult medical examination without abnormal findings, Z98.890 - Other specified postprocedural states IRON PROFILE 1 Year I10 - Essential (primary) hypertension, I48.20 - Chronic atrial fibrillation, unspecified, R79.89 - Other specified abnormal findings of blood chemistry, Z00.00 - Encounter for general adult medical examination without abnormal findings, Z98.890 - Other specified postprocedural states Ferritin 1 Year I10 - Essential (primary) hypertension, I48.20 - Chronic atrial fibrillation, unspecified, R79.89 - Other specified abnormal findings of blood chemistry, Z00.00 - Encounter for general adult medical examination without abnormal findings, Z98.890 - Other specified postprocedural states UA w Microscopic 1 Year I10 - Essential (primary) hypertension, I48.20 - Chronic atrial fibrillation, unspecified, R79.89 - Other specified abnormal findings of blood chemistry, Z00.00 - Encounter for general adult medical examination without abnormal findings, Z98.890 - Other specified postprocedural states Hemoglobin A1c 1 Year I10 - Essential (primary) hypertension, I48.20 - Chronic atrial fibrillation, unspecified, R79.89 - Other specified abnormal findings of blood chemistry, Z00.00 - Encounter for general adult medical examination without abnormal findings, Z98.890 - Other specified postprocedural states Coding Level of Care Code Est Pt Prev Care 40-64y(46604) Diagnoses Chronic atrial fibrillation I48.20 HTN (hypertension) I10 Hx of colonoscopy Z98.890 Annual physical exam Z00.00 Elevated ferritin R79.89
[2023-09-28 11:33] VITALS: BP 112/86; PULSE 71; O2SAT 96; BMI 30.3
== END 2023-09-28 11:55 | disposition home or self-care (01) ==
PROVIDERS: Visit Provider Internal Medicine
DX: I48.20 Chronic atrial fibrillation, unspecified (principal); I10 Essential (primary) hypertension; Z98.890 Other specified postprocedural states; Z00.00 Encounter for general adult medical examination without abnormal findings; R79.89 Other specified abnormal findings of blood chemistry
CPT/HCPCS: 99396

== ENCOUNTER 2024-01-15 10:34 | Outpatient (REF) | payer BC, SELFPAY ==
[2024-01-15 12:54] LABS: Digoxin 1.3 ng/mL (0.8-2.0)
[2024-01-15 12:55] LABS: Anion Gap 10 (12-20); Blood Urea Nitrogen 8 mg/dL (9-16); Calcium 9.5 mg/dL (8.4-10.2); Carbon Dioxide 30 mmol/L (22-29); Chloride 104 mmol/L (96-108); Estimated Glomerular Filt Rate > 60; Glucose Random 122 mg/dL (60-115); Potassium 4.4 mmol/L (3.3-5.1); Sodium 140 mmol/L (135-145)
== END 2024-01-15 10:35 | disposition home or self-care (01) ==
LOC: HO.LAB 10:34
PROVIDERS: PCP Internal Medicine; Visit Provider Internal Medicine Cardiovascular Disease
DX: I48.20 Chronic atrial fibrillation, unspecified (principal); Z86.79 Personal history of other diseases of the circulatory system
CPT/HCPCS: 36415; 80048; 80162; 93005

== ENCOUNTER 2024-01-15 10:34 | Outpatient (AMB) | payer BC, SELFPAY ==
[2024-01-15 10:36] VITALS: BP 132/80; PULSE 69; BMI 31.4
--- NOTE | 2024-01-15 10:36 | MHC.OFFVIS ---
Vital Signs 01/15/24 10:36 Height 5 ft 11 in Weight 224 lb 13.944 oz BMI 31.4 BP 132/80 Blood Pressure Location Lt brachial Position Sitting Pulse 69 Intake Visit Reasons: 6 month follow up Intake Note: 6 month follow-up feeling good Campaign Advisor Required: No Allergies No Known Allergies Allergy (Mild, Verified 09/28/23 11:35) NONE Medication List - Last Reconciled 01/15/24 by Austin Conti MD apixaban (Eliquis) 5 mg PO BID carvedilol 37.5 mg (1.5 x 25 mg) PO BID 90 days digoxin (Digox) 250 mcg PO DAILY 90 days losartan 12.5 mg (1/2 x 25 mg) PO QPM simvastatin 20 mg PO BEDTIME HPI Comments Details: Neo comes for follow-up. He continues to have exertional shortness of breath, NYHA class 2 which has been chronic, no worsening in his symptoms. No orthopnea, PND, leg edema. Exertional chest pain. Takes all his medications. No bleeding issues or neurologic events. No prolonged palpitation irregular heartbeat. No lightheadedness, syncope. Blood pressure is well optimized. He says his brother who is 4 years older than him was recently diagnose with cardiomyopathy and possible atrial fibrillation he is not very well aware of it. Has been seeing electrophysiology for possible placement of defibrillator, he is not sure as well. This is in line with his family history with his sister and his mother having cardiomyopathy process. 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 Patient Tobacco Use Status: Never used Tobacco e-Cigarette/Vaping Use: Never Used service: No Current occupational status: employed Cognitive needs: No Hearing needs: No Vision needs: No Review of Systems Const Denies chills, Denies fatigue, Denies fever(s), Denies frequent falls, Denies weakness, Denies weight gain and Denies weight loss ENT Denies dizziness Card Denies chest pain, Denies leg edema, Denies lightheadedness, Denies palpitations, Denies dyspnea, Denies dyspnea on exertion, Denies orthopnea and Denies other (loss of consciousness) Resp Denies cough, Denies dyspnea and Denies dyspnea on exertion GI Denies hematochezia and Denies change in stool character Musc Denies abnormal gait, Denies muscle weakness, Denies numbness, Denies radiating pain into limb and Denies tingling Neuro Denies abnormal gait, Denies dizziness, Denies frequent falls, Denies numbness, Denies tingling and Denies weakness Endo Denies fatigue and Denies palpitations Physical Exam Vital Signs: Last Vital Signs Pulse 69 01/15/24 10:36 BP 132/80 01/15/24 10:36 BMI result Body Mass Index 31.4 Const General: cooperative, comfortable, no acute distress, alert, awake and well groomed Nutritional Appearance: overweight Orientation/consciousness: patient oriented x3 Limitations: no limitations Neck Neck: Yes trachea midline, Yes supple and Yes no JVD Resp Effort & Inspection: normal respiratory effort Auscultation: clear to auscultation bilaterally Cardio Jugular venous distension: no JVD Palpation: normal PMI Rate: regular rate Rhythm: abnormal rhythm irregularly irregular Heart sounds: S1 normal heart sound present, S2 normal heart sound present, no click, no gallops, no murmurs and no rubs GI Auscultation: normal bowel sounds Skin General skin exam: no rashes or lesions noted Neuro General: patient oriented x3 and no focal motor deficits Extrem General: Yes no clubbing, cyanosis or edema Psych Appearance: grossly normal Office Procedures EKG Details: EKG shows atrial fibrillation with left axis deviation [id number], Complete Assessment & Plan Assessment & Plan (1) Chronic atrial fibrillation: Comment: s/p 2 unsuccessful ablations, rate controlled, Dr. Conti , ECHO 08/27 nlEF 60% Code(s): I48.20 - Chronic atrial fibrillation, unspecified Category: Medical Plan: Chronic atrial fibrillation has failed rhythm control approach in the past and has done very well with rate control approach. Continues to NYHA class 2 shortness of breath. No worsening symptoms of heart failure. Will continue pursue rate control approach at this point time with dual therapy with carvedilol and digoxin which has worked well for him. Digoxin assay every 6 months should be pursued. Continue full oral anticoagulation, currently on Eliquis 5 mg b.i.d.. Semi annual renal function test and annual CBC should be pursued. Management was discussed with him. He understands them well. (2) History of cardiomyopathy: Code(s): Z86.79 - Personal history of other diseases of the circulatory system Category: Medical Plan: Prior history of cardiomyopathy which has normalized with neurohormonal modulation as rate control. 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 Although his LV ejection fraction normalized by last echocardiogram. Follow-up echocardiogram 6 months time. Signs and symptoms of heart failure were discussed. He has chronic NYHA 2 shortness of breath and this is not a new symptoms. At this point time no further workup is indicated in terms of ischemia workup. Continue current blood pressure control. Continue maintain activity level as tolerated. Will follow up in the clinic in 6 months time after an echocardiogram. Thank you for allowing me to partake in his care Orders: Orders Digoxin Today I48.20 - Chronic atrial fibrillation, unspecified Basic Metabolic Panel Today I48.20 - Chronic atrial fibrillation, unspecified CA echo transthoracic complete 6 Months Z.79 - Personal history of other diseases of the circulatory system Coding Level of Care Code Est Pt Level 4 (37884) Diagnoses Chronic atrial fibrillation I48.20 History of cardiomyopathy Z. CPT Codes EKG - CPT: 67349-[id number], Complete ([id number])
== END 2024-01-15 11:06 | disposition home or self-care (01) ==
PROVIDERS: PCP Internal Medicine; Visit Provider Internal Medicine Cardiovascular Disease
DX: I48.20 Chronic atrial fibrillation, unspecified (principal); Z86.79 Personal history of other diseases of the circulatory system
CPT/HCPCS: 93010; 99214

== ENCOUNTER → 2024-07-10 12:36 | Outpatient (REF) | payer BC, SELFPAY ==
--- NOTE | 2024-07-10 12:38 | CA_ITS ---
Transthoracic Echocardiogram Patient (Last, First, Middle): Damion Carlton P Gender: Male Date of : 1960 Age: 63 Procedure Date: 07/10/2024 Procedure Type: Transthoracic Echocardiogram Location: OP Height: 177.8 cm Weight: 96.16 kg BSA: 2.14 m2 Heart Rate: bpm BP: 128 / 80 mmHg Digester Operator: Referring MD: Austin Conti MD Lumber Sales Supervisor: Austin Conti MD Symptoms: Cardiomyopathy, Atrial fibrillation Study Quality: Fair ECG Rhythm: Atrial Fibrillation Conclusions: - 1. Low normal LV ejection fraction 50-55% 2. Moderately dilated left atrium 3. Normal cardiac valvular Dopplers 4. Normal RV systolic pressure 5. No gross pericardial effusion Findings Left Ventricle Normal left ventricular cavity size. There is normal left ventricular wall thickness. The left ventricular systolic function is low normal. The visually estimated ejection fraction is between 50-55%. Diastolic function is indeterminate on the basis of available data. Right Ventricle Normal right ventricular cavity size and systolic function. Atria The left atrium is moderately dilated. There is no evidence of interatrial shunt. The right atrium is normal in size. Aortic Valve Normal aortic valve structure and function. There is no aortic valve stenosis. There is no aortic valve regurgitation. Mitral Valve Normal mitral valve structure and function. There is trace mitral valve regurgitation. There is no mitral valve stenosis. Pulmonic Valve The pulmonic valve was not well visualized. Tricuspid Valve Likely normal tricuspid valve structure and function. There is trace tricuspid valve regurgitation. The right ventricular systolic pressure is normal. The right ventricular systolic pressure is 19 mmHg. Normal right atrial pressure. There is no evidence of pulmonary hypertension. Great Vessels All visible segments of the aorta are normal in size. The pulmonary artery was not well visualized. There is no dilatation of the ascending aorta measuring 3.10 cm. Venous The inferior vena cava is mildly dilated. Pericardium/Pleural There is no evidence of pericardial effusion. Prior Study Comparison No significant change compared to prior study dated: 07/29/2022. Measurements 2D Linear Measurements IVSd: 1.14 0.6-0.9/0.6-1.0 cm LVIDd: 5.18 3.9-5.3/4.2-5.9 cm LVIDd Index: 2.42 2.4-3.2/2.2-3.1 cm/m2 LVIDs: 3.68 2.0-3.6 cm LVPWd: 1.10 0.7-1.1 cm Ao Root: 3.10 2.1-3.5 cm LA Diam: 5.40 2.7-3.8/3.0-4.0 cm LAIDs Index: 2.52 1.5-2.3 cm/m2 LV Mass: 280.31 67-162/88-224 g LV Mass Index: 130.98 43-95/49-115 g/m2 LVOT Diam: 2.30 3.0+(-)1.3 cm 2D Systolic Function EF 4C: 57.60 >55% EF 2C: 49.30 >55% EF BiP: 53.80 >55% Mitral Valve MV Pk E: 0.82 MV Decel Time: 176.00 E'Lateral: 9.14 E'Medial: 9.46 E/E' Med: 8.60 E/E' Lat: 8.90 PHT: 52.00 MVA PHT: 4.23 Decel Ransom: 4.64 Aortic Valve AoV Pk Da: 1.03 AoV Mn Da: 0.71 AoV VTI: 0.22 AoV Pk Grad: 4.00 Aov Mn Grad: 2.00 ALEXIS Cont.VTI: 2.61 LVOT LVOT Pk Da: 0.69 LVOT Mn Da: 0.45 LVOT VTI: 0.14 LVOT Pk Grad: 2.00 LVOT Mn Grad: 1.00 LVOT Diam: 2.30 LVOT Area: 4.15 Diastolic Function MV Pk E: 0.82 E'Medial: 9.46 E/E' Med: 8.60 E' Laterial: 9.14 E/E' Lat: 8.90 Tricuspid Valve TR Pk Da: 2.00 TR Pk Grad: 16.00 RA Press: 3.00 RVSP: 19.00 Great Vessels Aorta Ao Root-2D: 3.10 2.0-3.7 cm Ao Asc: 3.10 2.1-3.4 cm Pulmonary Valve PV Pk Da: 1.33 Peak PV Grad: 7.00 Updated in Other Vendor System with Status of Final Austin Conti MD electronically signed on 07/11/2024 12:01:50 PM with status of Final
--- OUTSIDE RECORDS SUMMARY | 2024-07-10 14:54 | XMS_ITS | Clinical Summary ---
Author Organization [facility] Address [address] [place] [address] Care Team Providers Care Account Executive Software Sales Name Role Phone Unavailable Primary Care Provider Unavailabl e Social History Tobacco Use Types Packs/Day Years Used Date Smoking Tobacco: Never Assessed Sex and Gender Information Value Date Recorded Sex Assigned at Not on file Gender Identity Not on file Sexual Orientation Not on file Plan of Treatment Not on file
== END ==
LOC: HO.CARD 12:36
PROVIDERS: PCP Internal Medicine; Visit Provider Internal Medicine Cardiovascular Disease
DX: Z86.79 Personal history of other diseases of the circulatory system (principal)
CPT/HCPCS: 93306

== ENCOUNTER → 2024-07-10 12:38 | Outpatient (BNV) | payer BC, SELFPAY | PROVIDERS: PCP Internal Medicine; Visit Provider Internal Medicine Cardiovascular Disease | DX: I42.8 Other cardiomyopathies (principal); I51.7 Cardiomegaly; I48.91 Unspecified atrial fibrillation | CPT/HCPCS: 93306 ==

== ENCOUNTER 2024-07-17 10:29 | Outpatient (REF) | payer BC, SELFPAY ==
[2024-07-17 12:22] LABS: Digoxin 1.1 ng/mL (0.8-2.0)
[2024-07-17 12:39] LABS: Anion Gap 9 (12-20); Blood Urea Nitrogen 11 mg/dL (9-16); Carbon Dioxide 28 mmol/L (22-29); Chloride 108 mmol/L (96-108); Estimated Glomerular Filt Rate > 60; Glucose Random 124 mg/dL (60-115); Potassium 4.4 mmol/L (3.3-5.1); Sodium 141 mmol/L (135-145)
--- OUTSIDE RECORDS SUMMARY | 2024-07-17 12:57 | XMS_ITS | Clinical Summary ---
Author Organization [facility] Address [address] [place] [address] Care Team Providers Care Product Manager Medical Device Name Role Phone Unavailable Primary Care Provider Unavailabl e Social History Tobacco Use Types Packs/Day Years Used Date Smoking Tobacco: Never Assessed Sex and Gender Information Value Date Recorded Sex Assigned at Not on file Gender Identity Not on file Sexual Orientation Not on file Plan of Treatment Not on file
== END 2024-07-17 10:30 | disposition home or self-care (01) ==
LOC: HO.LAB 10:29
PROVIDERS: PCP Internal Medicine; Visit Provider Internal Medicine Cardiovascular Disease
DX: I48.20 Chronic atrial fibrillation, unspecified (principal); Z86.79 Personal history of other diseases of the circulatory system
CPT/HCPCS: 36415; 80048; 80162; 93005

== ENCOUNTER 2024-07-17 10:29 | Outpatient (AMB) | payer BC, SELFPAY ==
[2024-07-17 10:39] VITALS: BP 118/62; PULSE 64; BMI 30.7
--- NOTE | 2024-07-17 10:39 | A.OFFVIS_ITS ---
Vital Signs 07/17/24 10:39 Height 5 ft 11 in Weight 220 lb 7.396 oz BMI 30.7 BP 118/62 Blood Pressure Location Lt brachial Position Sitting Pulse 64 Pulse Source Monitor Intake Visit Reasons: 6 mth f/up Allergies No Known Allergies Allergy (Mild, Verified 09/28/23 11:35) NONE Medication List - Last Reconciled 07/17/24 by Austin Conti MD apixaban (Eliquis) 5 mg PO BID carvedilol 37.5 mg (1.5 x 25 mg) PO BID 90 days digoxin 250 mcg PO DAILY losartan 12.5 mg (1/2 x 25 mg) PO QPM simvastatin 20 mg PO BEDTIME HPI Comments Details: Neo comes for follow-up. He has been doing well from cardiac perspective. Has stable NYHA class 2 symptoms exertional shortness of breath. Denies any prolonged palpitation irregular heartbeat. Occasionally feels palpitation when he was resting at nighttime. Denies any orthopnea, PND, leg edema. Denies any exertional chest pain. No lightheadedness, syncope. Blood pressure is generally well controlled. Most recent echocardiogram shows LVEF of 50-55% with moderate left atrial enlargement. No major valvular abnormalities. 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 [employer] Housing: House Patient Tobacco Use Status: Never used Tobacco e-Cigarette/Vaping Use: Never Used service: No Current occupational status: employed Cognitive needs: No Hearing needs: No Vision needs: No Review of Systems Const Denies weakness ENT Denies dizziness Card Denies chest pain, Denies chest pain with activity, Denies syncope, Denies rapid heart rate, Denies pedal edema, Denies edema, Denies leg edema, Denies lightheadedness, Denies palpitations, Denies dyspnea, Denies dyspnea on exertion and Denies orthopnea Resp Denies cough, Denies dyspnea and Denies dyspnea on exertion GI Denies hematochezia and Denies change in stool character Musc Denies abnormal gait, Denies muscle cramps, Denies muscle weakness, Denies numbness, Denies radiating pain into limb and Denies tingling Neuro Denies abnormal gait, Denies dizziness, Denies syncope, Denies numbness, Denies tingling and Denies weakness Endo Denies palpitations Physical Exam Vital Signs: Last Vital Signs Pulse 64 07/17/24 10:39 BP 118/62 07/17/24 10:39 BMI result Body Mass Index 30.7 Const General: cooperative, comfortable, no acute distress, alert, awake and well groomed Nutritional Appearance: overweight Orientation/consciousness: patient oriented x3 Limitations: no limitations Neck Neck: Yes trachea midline, Yes supple and Yes no JVD Resp Effort & Inspection: normal respiratory effort Auscultation: clear to auscultation bilaterally Cardio Jugular venous distension: no JVD Palpation: normal PMI Rate: regular rate Rhythm: abnormal rhythm irregularly irregular Heart sounds: S1 normal heart sound present, S2 normal heart sound present, no click, no gallops, no murmurs and no rubs GI Auscultation: normal bowel sounds Skin General skin exam: no rashes or lesions noted Neuro General: patient oriented x3 and no focal motor deficits Extrem General: Yes no clubbing, cyanosis or edema Psych Appearance: grossly normal Office Procedures EKG Details: EKG shows atrial fibrillation with controlled rate with nonspecific ST changes 33749-[id number], Complete Assessment & Plan Assessment & Plan (1) History of cardiomyopathy: Code(s): Z86.79 - Personal history of other diseases of the circulatory system Category: Medical Plan: Prior history of cardiomyopathy with low normal LV ejection fraction with good rate control on current neurohormonal modulation with carvedilol and losartan therapy. Tolerating them well. Given the same. Sudden he has family history of cardiomyopathy and congestive heart failure will continue follow up by ec hocardiogram on annual basis. Signs and symptoms of heart failure were discussed. He understands agrees. (2) Chronic atrial fibrillation: Comment: s/p 2 unsuccessful ablations, rate controlled, Dr. Conti , ECHO 08/27 nlEF 60% Code(s): I48.20 - Chronic atrial fibrillation, unspecified Category: Medical Plan: Chronic atrial fibrillation has failed rhythm control in the past and currently rate is adequately control on dual therapy with carvedilol and digoxin. Continue the same. Importance of aggressive rate control was discussed. Digoxin assay should be performed every 6 months. Continue full oral anticoagulation with Eliquis. Renal function panel every 6 months. Will follow up in the clinic in 1 year's time after an echocardiogram. Thank you for allowing me to partake in his care Orders: Orders Digoxin 6 Months I48.20 - Chronic atrial fibrillation, unspecified Basic Metabolic Panel 6 Months I48.20 - Chronic atrial fibrillation, unspecified Digoxin Today I48.20 - Chronic atrial fibrillation, unspecified Basic Metabolic Panel Today I48.20 - Chronic atrial fibrillation, unspecified CA echo transthoracic complete 1 Year I48.20 - Chronic atrial fibrillation, unspecified Coding Level of Care Code Est Pt Level 4 (14851) Diagnoses History of cardiomyopathy Z86.79 Chronic atrial fibrillation I48.20 CPT Codes EKG - CPT: 91473-[id number], Complete ([id number])
--- OUTSIDE RECORDS SUMMARY | 2024-07-17 12:09 | XMS_ITS | Clinical Summary ---
Author Organization [facility] Address [address] [place] [address] Care Team Providers Care Stone Decorator Name Role Phone Unavailable Primary Care Provider Unavailabl e Social History Tobacco Use Types Packs/Day Years Used Date Smoking Tobacco: Never Assessed Sex and Gender Information Value Date Recorded Sex Assigned at Not on file Gender Identity Not on file Sexual Orientation Not on file Plan of Treatment Not on file
== END 2024-07-17 11:00 | disposition home or self-care (01) ==
LOC: HO.HCS 10:30
PROVIDERS: PCP Internal Medicine; Visit Provider Internal Medicine Cardiovascular Disease
DX: Z86.79 Personal history of other diseases of the circulatory system (principal); I48.20 Chronic atrial fibrillation, unspecified
CPT/HCPCS: 93010; 99214

== ENCOUNTER 2024-10-14 07:02 | Outpatient (REF) | payer BC, SELFPAY ==
--- OUTSIDE RECORDS SUMMARY | 2024-10-14 07:04 | XMS_ITS | Clinical Summary ---
Author Organization [facility] Address [address] [place] [address] Care Team Providers Care Campaign Advisor Name Role Phone Unavailable Primary Care Provider Unavailabl e Social History Tobacco Use Types Packs/Day Years Used Date Smoking Tobacco: Never Assessed Sex and Gender Information Value Date Recorded Sex Assigned at Not on file Gender Identity Not on file Sexual Orientation Not on file Plan of Treatment Not on file
[2024-10-14 10:19] LABS: MANUAL DIFF FLAG NO
[2024-10-14 10:26] LABS: Basophils Absolute Auto 0.1 X10*3/uL (0.0-0.2); Basophils Percent Auto 0.9 % (0-2); Eosinophils Absolute Auto 0.3 X10*3/uL (0.0-0.4); Eosinophils Percent Auto 2.5 % (0-4); Hematocrit 45.4 % (42.0-52.0); Imm Gran Abs Auto 0.07 X10*3/uL (0.00-0.03); Imm Gran Pct Auto 0.7 % (0.0-0.4); Lymphocytes Absolute Auto 2.8 X10*3/uL (1.2-4.9); Lymphocytes Percent Auto 26.7 % (20-40); Mean Corpuscular Hemoglobin 30.9 pg (27.0-33.0); Mean Corpuscular Volume 93.4 fL (80.0-98.0); Mean Platelet Volume 10.6 fL (9.4-12.4); Monocytes Absolute Auto 0.8 X10*3/uL (0.1-1.2); Monocytes Percent Auto 7.6 % (2-11); Neutrophils Absolute Auto 6.3 x10*3/uL (2.0-8.3); Neutrophils Percent Auto 61.6 % (45-73); Platelet Count 235 X10*3/uL (160-400); Red Blood Count 4.86 X10*6/uL (4.60-5.80); Red Cell Distribution Width 12.7 % (11.0-16.0); White Blood Count 10.3 X10*3/uL (4.8-10.8)
[2024-10-14 10:36] LABS: Estimated Average Glucose 157 mg/dL; Hemoglobin A1c % 7.1 % (<6.0)
[2024-10-14 10:45] LABS: Appearance Urine Clear; Color Urine Yellow; Glucose Urine UA Negative (Negative); Leukocyte Esterase Urine Negative (Negative); Nitrite Urine Negative (Negative); Urine Blood Negative (Negative); Urine Ketones Trace mg/dL (Negative); Urine Protein Negative (Neg-Trace)
[2024-10-14 10:47] LABS: Alanine Aminotransferase 23 U/L (0-40); Albumin Level 4.2 g/dL (3.5-5.0); Alkaline Phosphatase 73 U/L (39-117); Anion Gap 8 (12-20); Aspartate Amino Transferase 40 U/L (5-37); Bilirubin Total 1.5 mg/dL (0.0-1.0); Blood Urea Nitrogen 13 mg/dL (9-16); Calcium 8.9 mg/dL (8.4-10.2); Carbon Dioxide 28 mmol/L (22-29); Chloride 106 mmol/L (96-108); Cholesterol 149 mg/dL (<200); Estimated Glomerular Filt Rate > 60; Glucose Fasting 130 mg/dL (60-99); HDL Cholesterol 28 mg/dL (>40); Iron 90 mcg/dL (45-160); LDL Cholesterol Calculated 92 mg/dL (<100); Percent Iron Saturation 36 % (15-50); Sodium 138 mmol/L (135-145); Total Iron Binding Capacity 251 mcg/dL (228-428); Triglycerides 146 mg/dL (<150); Unsaturated Iron Binding 161 ug/dL
[2024-10-14 10:52] LABS: Bacteria Urine None Seen (None Seen); Hyaline Casts Urine 0-2 /LPF (0-2); RBC Urine 0-2 /HPF (0-2); Squamous Epithelial Cell Urine 0-2 /HPF (0-2); WBC Urine 0-5 /HPF (0-5)
[2024-10-14 10:55] LABS: PSA,Total (Free>4and<10) 0.36 ng/mL (0.00-4.00)
[2024-10-14 11:06] LABS: Ferritin 483 ng/mL (20-250)
== END 2024-10-14 07:03 | disposition home or self-care (01) ==
LOC: HO.HMGCLDS 07:02
PROVIDERS: PCP Internal Medicine; Visit Provider Internal Medicine
DX: Z00.00 Encounter for general adult medical examination without abnormal findings (principal); Z98.890 Other specified postprocedural states; I48.20 Chronic atrial fibrillation, unspecified; I10 Essential (primary) hypertension; Z12.5 Encounter for screening for malignant neoplasm of prostate
CPT/HCPCS: 36415; 80053; 80061; 81001; 82728; 83036; 83540; 84153; 85025

== ENCOUNTER 2024-10-29 11:42 | Outpatient (AMB) | payer BC, SELFPAY ==
[2024-10-29 11:54] VITALS: BP 112/70; PULSE 66; RESP 18; TEMP 36.8; O2SAT 97; BMI 31.1
--- NOTE | 2024-10-29 11:54 | MHC.PC.OV ---
Vital Signs 10/29/24 11:54 Height 5 ft 11 in Weight 223 lb BMI 31.1 BP 112/70 Blood Pressure Location Lt brachial Position Sitting Respiration 18 Pulse 66 Pulse Source Pulse Oximeter Temp 98.2 F Temp Source Oral Pulse Oximetry (%) 97 Oxygen Delivery Method Room Air Intake Visit Reasons: PE Intake Note: Pt is here today for PE. Allergies No Known Allergies Allergy (Mild, Verified 10/29/24 11:54) NONE Medication List - Last Reconciled 10/29/24 by Lakshmi Kohler MD apixaban (Eliquis) 5 mg PO BID carvedilol 37.5 mg (1.5 x 25 mg) PO BID digoxin 250 mcg PO DAILY losartan 12.5 mg (1/2 x 25 mg) PO QPM simvastatin 20 mg PO BEDTIME Tobacco use date assessed: 10/29/24 Dental Screening Dental Screen Date: 10/29/24 Did you have a dental visit in the last 12 months?: Yes Did you have a dental problem in the last 6 months where you did not have access to dental care?: No Was dental information given to patient?: Patient has dentist HPI PE HPI Details Pt presents for PE. 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 1. Little interest or pleasure in doing things: not at all 2. Feeling down, depressed, or hopeless: not at all 3. Trouble falling or staying asleep, or sleeping too much: not at all 4. Feeling tired or having little energy: not at all 5. Poor appetite or overeating: not at all 6. Feeling bad about yourself - or that you are a failure or have let yourself or your family down: not at all 7. Trouble concentrating on things, such as reading the newspaper or watching television: not at all 8. Moving or speaking so slowly that other people could have noticed. Or the opposite - being so fidgety or restless that you have been moving around a lot more than usual: not at all 9. Thoughts that you would be better off or of hurting yourself in some way: not at all Total score: 0 Depression Screening Interpretation: Negative Depression Screening Done: Yes 01460 - PHQ-9 Billing: Yes Source: Developed by Drs. Edmond Hernandez, Li Berry, Santhosh Contreras and colleagues, with an educational raffi from [employer]. Thrive Questionnaire Date Thrive assessed: 10/29/24 I am a: Patient What is your living situation today?: I have a steady place to live Within the past 12 months, did the food you bought not last and you didn't have the money to get more?: Never true Within the past 12 months, did you worry whether your food would run out before you got money to buy more?: Never true Do you have trouble paying for medicines?: No Do you have trouble getting transportation to medical appointments?: No Do you have trouble paying your heating and electricity bill?: No Do you have trouble taking care of your child, family member or friend?: No Do you have trouble with day-to-day activities such as bathing, preparing meals, shopping, managing finances, etc.?: No Are you currently unemployed and looking for a job?: No Are you interested in more education?: No Please select the resources that you would like help with: None Currently or been in a relationship where the following occur: No concerns reported THRIVE Score: 0 AUDIT C Alcohol Use Questionnaire (AUDIT-C) 1. How often do you have a drink containing alcohol?: Monthly or less 2. How many drinks containing alcohol do you have on a typical day when you are drinking?: 1 or 2 3. How often do you have six or more drinks on one occasion?: Never Total Score: 1 PALOMO-7 AMB Questionnaire PALOMO-7 Date PALOMO - 7 assessed: 10/29/24 Feeling nervous, anxious, or on edge: 0 = Not at all Not being able to stop or control worryin = Not at all Worrying too much about different things: 0 = Not at all Trouble relaxin = Not at all Being so restless that it is hard to sit still: 0 = Not at all Becoming easily annoyed or irritable: 0 = Not at all Feeling afraid as if something awful might happen: 0 = Not at all Total PALOMO-7 score (0-4 normal; 5-9 mild; 10-14 moderate; 15-21 severe): 0 Source: Developed by Drs. Edmond Hernandez, Li Berry, Santhosh Contreras and colleagues, with an educational raffi from [employer]. PALOMO-7 Assessment Billing PALOMO-7 Assessment Tool: PALOMO-7 Assessment 55470 Review of Systems Const All systems reviewed & are unremarkable except as noted in HPI and below Eyes Reports no additional complaints ENT Reports no additional complaints Card Reports no additional complaints Resp Reports no additional complaints GI Reports no additional complaints Reports no additional complaints Physical exam (Primary Care) Vital Signs: Last Vital Signs Temp 98.2 F 10/29/24 11:54 Pulse 66 10/29/24 11:54 Resp 18 10/29/24 11:54 BP 112/70 10/29/24 11:54 Pulse Ox 97 10/29/24 11:54 Oxygen Delivery Method Room Air 10/29/24 11:54 BMI result Body Mass Index 31.1 Tobacco/Smoking Status: Tobacco use Status Tobacco use date assessed 10/29/24 10/29/24 11:55 Patient Tobacco Use Status Never used Tobacco 10/29/24 11:55 e-Cigarette/Vaping Use Never Used 10/29/24 11:55 PHQ-9: PHQ-9 Score PHQ-9: Total score 0 10/29/24 12:34 Depression Screening Interpretation: Negative Thrive Assessment: Date of Thrive Assessment Date Thrive assessed 10/29/24 10/29/24 11:55 Currently or been in a relationship where the following occur: No concerns reported Const General: no acute distress HENMT Head: Yes normal to inspection Throat: Yes posterior oropharynx normal Eyes General: appearance normal, both eyes and all related structures Neck Neck: Yes no lymphadenopathy and Yes supple Resp Effort & Inspection: normal respiratory effort Auscultation: clear to auscultation bilaterally Cardio Rhythm: regular rhythm Heart sounds: S1 normal heart sound present and S2 normal heart sound present GI Inspection: Yes normal to inspection Palpation (GI): Soft to palpation Percussion: Yes normal to percussion Auscultation: normal bowel sounds Coding Level of Care Code Est Pt Prev Care 40-64y(75512) Diagnoses DM type 2 (diabetes mellitus, type 2) E11.9 Chronic atrial fibrillation I48.20 HTN (hypertension) I10 Annual physical exam Z00.00 Additional Codes PALOMO-7 Assessment Billing - PALOMO-7 Assessment Tool: PALOMO-7 Assessment 68358 ([id number]) PHQ-9 - 17609 - PHQ-9 Billing: Yes ([id number]) Assessment & Plan Assessment & Plan (1) DM type 2 (diabetes mellitus, type 2): Code(s): E11.9 - Type 2 diabetes mellitus without complications Category: Medical Plan: A1c is 7.1, ADA diet increase exercise weight loss discussed with the patient. He declined taking medications. He will return in 3 months with a fasting labs before (2) Chronic atrial fibrillation: Comment: s/p 2 unsuccessful ablations, rate controlled, Dr. Conti , ECHO 08/27 nlEF 60% Code(s): I48.20 - Chronic atrial fibrillation, unspecified Category: Medical Plan: Continue current medications follow-up with the Cardiology (3) HTN (hypertension): Code(s): I10 - Essential (primary) hypertension Category: Medical Plan: Continue current medications (4) Annual physical exam: Code(s): Z00.00 - Encounter for general adult medical examination without abnormal findings Category: Medical Plan: Well-balanced diet regular physical activity discussed with the patient he is up-to-date with colonoscopy Orders: Orders Hemoglobin A1c 3 Months E11.9 - Type 2 diabetes mellitus without complications, I10 - Essential (primary) hypertension, I48.20 - Chronic atrial fibrillation, unspecified Comprehensive [place]. Panel Fast 3 Months E11.9 - Type 2 diabetes mellitus without complications, I10 - Essential (primary) hypertension, I48.20 - Chronic atrial fibrillation, unspecified Microalbumin, Random (w Creat) 3 Months E11.9 - Type 2 diabetes mellitus without complications, I10 - Essential (primary) hypertension, I48.20 - Chronic atrial fibrillation, unspecified
== END 2024-10-29 12:49 | disposition home or self-care (01) ==
LOC: HO.HMCC 11:43
PROVIDERS: PCP Internal Medicine; Visit Provider Internal Medicine
DX: E11.9 Type 2 diabetes mellitus without complications (principal); I48.20 Chronic atrial fibrillation, unspecified; I10 Essential (primary) hypertension; Z00.00 Encounter for general adult medical examination without abnormal findings

== ENCOUNTER → 2024-10-29 11:42 | Outpatient (BNVA) | payer BC, SELFPAY | PROVIDERS: PCP Internal Medicine; Visit Provider Internal Medicine | DX: Z00.00 Encounter for general adult medical examination without abnormal findings (principal); E11.9 Type 2 diabetes mellitus without complications; I48.20 Chronic atrial fibrillation, unspecified; I10 Essential (primary) hypertension | CPT/HCPCS: 96127 ==

== ENCOUNTER 2025-01-16 10:22 | Outpatient (REF) | payer BC, SELFPAY ==
--- OUTSIDE RECORDS SUMMARY | 2025-01-16 13:10 | XMS_ITS | Clinical Summary ---
Author Organization [facility] Address [address] [place] [address] Care Team Providers Care Cupola Tapper Helper Name Role Phone Unavailable Primary Care Provider Unavailabl e Social History Tobacco Use Types Packs/Day Years Used Date Smoking Tobacco: Never Assessed Sex and Gender Information Value Date Recorded Sex Assigned at Not on file Gender Identity Not on file Sexual Orientation Not on file Plan of Treatment Not on file
[2025-01-16 13:35] LABS: Hemoglobin A1C 160.0517 umol/L; Total Hemoglobin (HGBA1C) 3756.3828 umol/L
[2025-01-16 14:07] LABS: Alanine Aminotransferase 28 U/L (0-40); Albumin Level 4.6 g/dL (3.5-5.0); Alkaline Phosphatase 70 U/L (39-117); Anion Gap 11 (12-20); Aspartate Amino Transferase 32 U/L (5-37); Blood Urea Nitrogen 21 mg/dL (9-16); Calcium 9.5 mg/dL (8.4-10.2); Carbon Dioxide 27 mmol/L (22-29); Chloride 106 mmol/L (96-108); Estimated Glomerular Filt Rate > 60; Potassium 4.6 mmol/L (3.3-5.1); Sodium 139 mmol/L (135-145); Total Protein 7.4 g/dL (6.5-8.0)
[2025-01-16 14:18] LABS: Microalbum/Creatinine Ratio Ur 9.5 ug/mg cr (<30)
[2025-01-16 14:59] LABS: Digoxin 1.1 ng/mL (0.8-2.0)
== END 2025-01-16 10:23 | disposition home or self-care (01) ==
LOC: HO.HMGCLDS 10:22
PROVIDERS: PCP Internal Medicine; Referring Provider Internal Medicine Cardiovascular Disease; Visit Provider Internal Medicine
DX: E11.9 Type 2 diabetes mellitus without complications (principal); I48.20 Chronic atrial fibrillation, unspecified; I10 Essential (primary) hypertension
CPT/HCPCS: 36415; 80053; 80162; 82043; 82570; 83036

== ENCOUNTER 2025-01-29 10:29 | Outpatient (AMB) | payer BC, SELFPAY ==
[2025-01-29 10:47] VITALS: BP 110/76; PULSE 80; RESP 17; TEMP 36.5; O2SAT 98; BMI 28.4
--- NOTE | 2025-01-29 10:47 | MHC.PC.OV ---
Vital Signs 01/29/25 10:47 Height 5 ft 11 in Weight 204 lb BMI 28.4 BP 110/76 Blood Pressure Location Lt brachial Position Sitting Respiration 17 Pulse 80 Pulse Source Pulse Oximeter Temp 97.7 F Temp Source Oral Pulse Oximetry (%) 98 Oxygen Delivery Method Room Air Intake Visit Reasons: 3 months f/up Intake Note: Pt is here today for 3 months follow up visit. Allergies No Known Allergies Allergy (Mild, Verified 01/29/25 10:47) NONE Medication List - Last Reconciled 01/29/25 by Lakshmi Kohler MD apixaban (Eliquis) 5 mg PO BID carvedilol 37.5 mg (1.5 x 25 mg) PO BID digoxin 250 mcg PO DAILY losartan 12.5 mg (1/2 x 25 mg) PO QPM simvastatin 20 mg PO BEDTIME Tobacco use date assessed: 01/29/25 Fall risk assessment: No Falls in past year Last assessed Fall Risk: 01/29/25 Dental Screening Dental Screen Date: 10/29/24 HPI 3 months f/up HPI Details Pt presents for DM 2, diet controlled, HTN, hyperlipid, persistent A fib, stable on meds. 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 1. Little interest or pleasure in doing things: not at all 2. Feeling down, depressed, or hopeless: not at all 3. Trouble falling or staying asleep, or sleeping too much: not at all 4. Feeling tired or having little energy: not at all 5. Poor appetite or overeating: not at all 6. Feeling bad about yourself - or that you are a failure or have let yourself or your family down: not at all 7. Trouble concentrating on things, such as reading the newspaper or watching television: not at all 8. Moving or speaking so slowly that other people could have noticed. Or the opposite - being so fidgety or restless that you have been moving around a lot more than usual: not at all 9. Thoughts that you would be better off or of hurting yourself in some way: not at all Total score: 0 Depression Screening Interpretation: Negative Depression Screening Done: Yes Source: Developed by Drs. Edmond Hernandez, Li Berry, Santhosh Contreras and colleagues, with an educational raffi from [employer]. Thrive Questionnaire Date Thrive assessed: 10/22/24 I am a: Patient What is your living situation today?: I have a steady place to live Within the past 12 months, did the food you bought not last and you didn't have the money to get more?: Never true Within the past 12 months, did you worry whether your food would run out before you got money to buy more?: Never true Do you have trouble paying for medicines?: No Do you have trouble getting transportation to medical appointments?: No Do you have trouble paying your heating and electricity bill?: No Do you have trouble taking care of your child, family member or friend?: No Do you have trouble with day-to-day activities such as bathing, preparing meals, shopping, managing finances, etc.?: No Are you currently unemployed and looking for a job?: No Are you interested in more education?: No Please select the resources that you would like help with: None Currently or been in a relationship where the following occur: No concerns reported THRIVE Score: 0 PALOMO-7 AMB Questionnaire PALOMO-7 Date PALOMO - 7 assessed: 10/29/24 Feeling nervous, anxious, or on edge: 0 = Not at all Not being able to stop or control worryin = Not at all Worrying too much about different things: 0 = Not at all Trouble relaxin = Not at all Being so restless that it is hard to sit still: 0 = Not at all Becoming easily annoyed or irritable: 0 = Not at all Feeling afraid as if something awful might happen: 0 = Not at all Total PALOMO-7 score (0-4 normal; 5-9 mild; 10-14 moderate; 15-21 severe): 0 Source: Developed by Drs. Edmond Hernandez, Li Berry, Santhosh Contreras and colleagues, with an educational raffi from [employer]. Review of Systems Const All systems reviewed & are unremarkable except as noted in HPI and below Card Reports no additional complaints Resp Reports no additional complaints GI Reports no additional complaints Physical exam (Primary Care) Vital Signs: Last Vital Signs Temp 97.7 F 01/29/25 10:47 Pulse 80 01/29/25 10:47 Resp 17 01/29/25 10:47 BP 110/76 01/29/25 10:47 Pulse Ox 98 01/29/25 10:47 Oxygen Delivery Method Room Air 01/29/25 10:47 BMI result Body Mass Index 28.4 Tobacco/Smoking Status: Tobacco use Status Tobacco use date assessed 01/29/25 01/29/25 10:48 Patient Tobacco Use Status Never used Tobacco 01/29/25 10:48 e-Cigarette/Vaping Use Never Used 01/29/25 10:48 PHQ-9: PHQ-9 Score PHQ-9: Total score 0 01/29/25 11:30 Depression Screening Interpretation: Negative Thrive Assessment: Date of Thrive Assessment Date Thrive assessed 10/22/24 01/29/25 10:48 Currently or been in a relationship where the following occur: No concerns reported Const General: no acute distress HENMT Head: Yes normal to inspection Mouth: Normal oral and palatal mucosa present Eyes General: appearance normal, both eyes and all related structures Neck Neck: Yes supple Resp Effort & Inspection: normal respiratory effort Auscultation: clear to auscultation bilaterally Cardio Rhythm: abnormal rhythm irregularly irregular Heart sounds: S1 normal heart sound present and S2 normal heart sound present GI Inspection: Yes normal to inspection Percussion: Yes normal to percussion Auscultation: normal bowel sounds Office Procedures Flu Questionnaire Does the patient have a severe egg allergy?: No Does the patient have severe life threatening allergies?: No Does the patient have a fever or illness today?: No Has the patient ever had Guillain-[place] Syndrome?: No Has the patient ever had any past reaction to a flu shot?: No Immunizations Fluarix [id number] (PF) 45 mcg (15 mcg x 3)/0.5 mL IM syringe Performing Provider: Lakshmi Kohler MD Performing [place] [facility] Administered by: KETAN Guy on 01/29/25 11:30 Dose Route Admin Location Dispensed Lot Number Expiration Date NDC Licensed And Certified Midwife 0.5 mL IM Left Deltoid 0.5 mL [id number] 11/04/25 [id number] [employer] VIS Given Date VIS Provided VIS Publication Date 01/29/25 Single Vaccine 24 Eligibility Eligibility Date Funding Source Not [facility] Eligible 01/29/25 Private Coding Level of Care Code Est Pt Level 4 (57338) Diagnoses HTN (hypertension) I10 DM type 2 (diabetes mellitus, type 2) E11.9 Chronic atrial fibrillation I48.20 Assessment & Plan Assessment & Plan (1) HTN (hypertension): Code(s): I10 - Essential (primary) hypertension Category: Medical Plan: Continue current medications (2) DM type 2 (diabetes mellitus, type 2): Code(s): E11.9 - Type 2 diabetes mellitus without complications Category: Medical Plan: A1c is down to 6.0 from 7.1, continue ADA diet regular exercise follow-up in 4 months with a fasting labs before (3) Chronic atrial fibrillation: Comment: s/p 2 unsuccessful ablations, cardioversions, on rate controlled regimen f/u Dr. Conti , ECHO 08/27 nlEF 60% Code(s): I48.20 - Chronic atrial fibrillation, unspecified Category: Medical Plan: Continue rate control and anticoagulation with Eliquis Orders: Orders Comprehensive [place]. Panel Fast 4 Months E11.9 - Type 2 diabetes mellitus without complications, I10 - Essential (primary) hypertension Hemoglobin A1c 4 Months E11.9 - Type 2 diabetes mellitus without complications, I10 - Essential (primary) hypertension Influenza [id number] Immunization Today Z23 - Encounter for immunization
--- OUTSIDE RECORDS SUMMARY | 2025-01-29 13:07 | XMS_ITS | Clinical Summary ---
Author Organization [facility] Address [address] [place] [address] Care Team Providers Care Corrections Lieutenant Name Role Phone Unavailable Primary Care Provider Unavailabl e Social History Tobacco Use Types Packs/Day Years Used Date Smoking Tobacco: Never Assessed Sex and Gender Information Value Date Recorded Sex Assigned at Not on file Gender Identity Not on file Sexual Orientation Not on file Plan of Treatment Not on file
== END 2025-01-29 11:31 | disposition home or self-care (01) ==
LOC: HO.HMCC 10:29
PROVIDERS: PCP Internal Medicine; Visit Provider Internal Medicine
DX: I10 Essential (primary) hypertension (principal); E11.9 Type 2 diabetes mellitus without complications; I48.20 Chronic atrial fibrillation, unspecified; Z23 Encounter for immunization

== ENCOUNTER → 2025-01-29 10:29 | Outpatient (BNVA) | payer BC, SELFPAY | PROVIDERS: PCP Internal Medicine; Visit Provider Internal Medicine | DX: E11.9 Type 2 diabetes mellitus without complications (principal); I10 Essential (primary) hypertension; E78.5 Hyperlipidemia, unspecified; I48.91 Unspecified atrial fibrillation; I48.20 Chronic atrial fibrillation, unspecified; Z23 Encounter for immunization; Z79.899 Other long term (current) drug therapy | CPT/HCPCS: 90471; 90656; 96127 ==